=== PATIENT | male | born 1985 | race Caucasian/White ===

== ENCOUNTER 2021-05-30 19:14 | Inpatient (IN) ==
[2021-05-30 20:01] LABS: Basophils # (auto) 0.02 K/uL (0-0.2); Basophils % (auto) 0.2 %; Eosinophils # (auto) 0.09 K/uL (0-0.5); Eosinophils % (auto) 0.7 %; Hemoglobin 15.4 g/dL (14.0-18.0); Immature Granulocytes # (auto) 0.03 K/uL (0.00-0.02); Immature Granulocytes % (auto) 0.2 %; Lymphocytes # (auto) 3.03 K/uL (1.2-3.4); Lymphocytes % (auto) 24.7 %; Mean Corpuscular Hemoglobin 29.2 pg (25-34); Mean Corpuscular Hgb Conc 32.8 g/dL (32-36); Mean Corpuscular Volume 89.2 fL (80-100); Mean Platelet Volume 10.3 fL (7.4-10.4); Monocytes # (auto) 1.13 K/uL (0.11-0.59); Monocytes % (auto) 9.2 %; Neutrophils # (auto) 7.98 K/uL (1.4-6.5); Platelet Count 271 K/uL (130-400); RDW Coefficient of Variation 15.6 % (11.5-14.5); RDW Standard Deviation 49.6 fL (36.4-46.3); Red Blood Count 5.27 M/uL (4.7-6.1); White Blood Count 12.28 K/uL (4.8-10.8)
[2021-05-30 20:15] LABS: Alanine Aminotransferase 169 U/L (12-78); Albumin Level 3.2 gm/dl (3.4-5.0); Aspartate Aminotransferase 96 U/L (15-37); BUN Creatinine Ratio 25.9 (10-20); Blood Urea Nitrogen 27 mg/dl (7-18); Calcium 8.3 mg/dl (8.5-10.1); Carbon Dioxide 25 mmol/L (21-32); Chloride 109 mmol/L (98-107); Est GFR (African American) 106.6 ml/min; Est GFR (Non-African American) 91.9 ml/min; Glucose 116 mg/dl (70-99); Magnesium 2.3 mg/dl (1.8-2.4); Sodium 141 mmol/L (136-145)
[2021-05-30 20:17] LABS: INR 1.2 (0.9-1.1); Partial Thromboplastin Ratio 0.9; Partial Thromboplastin Time 23.4 Seconds (21.0-31.0); Prothrombin Time 11.6 Seconds (9.0-12.0)
[2021-05-30 20:25] LABS: Albumin Globulin Ratio 0.8 (0.9-2); Alkaline Phosphatase 93 U/L (45-117); Total Protein 7.2 gm/dl (6.4-8.2); Troponin I 0.068 ng/ml (0-0.045)
[2021-05-30] MEDS ORDERED: NITROGLYCERIN 2% OINTMENT 30GM TUBE EXT STA (20:35)
[2021-05-30] MEDS ORDERED: ASPIRIN CHEW 324 MG PO STA (20:35)
[2021-05-30] MEDS ORDERED: LABETALOL HCL IV 5 MG/ML 20ML IV STA ×2 (21:05→22:24)
--- NOTE | 2021-05-30 22:40 | History & Physical Report ---
Date of Service May 30, 2021 Assessment & Plan (1) Hypertensive emergency: Plan: Patient is a 35 year old male with no documented PMHx who presents with 1 month history of worsening SOB, GOETZ, orthopnea, in addition to 1 week history of acutely worsening cough that was treated with Azithromycin Z pack and Medrol dose sandhya taper, found to be in hypertensive emergency with BP 215/154 in addition to elevated troponin and AST/ALT. Hypertensive Emergency -With BP 215/154 (MAP 174) on arrival in ED -Through review of previous visit patient did have BP as high as 212/141 at last visit in January 2021 -With elevated AST 96 and ALT 169 -Liver US ordered though suspect elevations due to HTN vs fatty liver -Trop elevated 0.068 without EKG changes suggestive of STEMI - repeat trop ordered -BNP elevated at 1645, CXR with increase densities at the bases b/l, though patient has fairly large body habitus -Patient given Labetalol 10mg IV, ASA 324mg, and 0.5 inch nitro paste in ED with reduction of pressure to 171/132 -On reevaluation patient's BP returning to 192/138 when measured in room -Will give another Labetalol 10mg IV now in addition to 20mg IV lasix for diuresis -Goal MAP of 130 ~170/110 -Vital Signs q1h -Renal US ordered -Echocardiogram for AM ordered -Random cortisol and AM cortisol pending -ACTH ordered -TSH within normal limits -AM Lipid panel and HgbA1c -Start HCTZ PO 25mg QD in AM, will likely require a secondary and possible tertiary addition for his BP control regiment Dispo: PCU for close monitoring of hypertension FEN: Regular diet DVT: low risk Code: Full History of Present Illness Chief Complaint: SOB Primary Care Provider: NO PCP Patient is a 35 year old male with no documented PMHx who presents with 1 month history of worsening SOB, GOETZ, orthopnea, in addition to 1 week history of acutely worsening cough that was treated with Azithromycin Z pack and Medrol dose sandhya taper, found to be in hypertensive emergency with BP 215/154 in addition to elevated troponin and AST/ALT. Patient notes that for the past 1 month he has had worsening GOETZ to the point where even helping a client bring something outside would make him short of breath. He denies any chest pain, chest pressure, headache, or visual changes with this. HE also notes that during this time he has also been developing orthopnea, and that in the past 2-3 weeks he has had worsening LE swelling b/l and has been on occasion "waking up gasping." He notes that for the past 1 week as well he has developed a dry cough. He was seen at [facility] 1 week ago and prescribed a Z pack and Medrol Dose sandhya which he completed this morning. He feels his cough has improved, however, his SOB has not. He denies any fever, chills, chest pain, chest pressure, abdominal pain, nausea, vomiting, diarrhea, visual changes, headaches. Med Hx - denies history of medical issues Surg Hx - denies any surgeries Soc Hx - Smoked 1/2 PPD for 5-6 years, quit 1 year ago. Drinks 1-2 beers/month. Does not use illicit drugs Fam Hx - Notes significant history of hypertension in his younger brother, father, and paternal grandfather. Mother's family has diabetes in addition to thyroid cancer (mother) and breast cancer (2 maternal aunts). Allergies Allergy/AdvReac Type Severity Reaction Status Date / Time shellfish derived Allergy Severe Swelling Verified 05/30/21 21:38 of Lip/Tongue/Throat Home Medications Medication Instructions Recorded Confirmed Type No Known Home Medications 05/30/21 05/30/21 History Past Med/Surg History Social History Smoking Status: Former smoker Tobacco Type: Cigarettes Cigarettes Per Day: 10; Smoking End Date: September 2019; Hx Alcohol Use: Yes Alcohol type: beer Hx Substance Use: No Preferred Language: Hungarian Beliefs That Will Affect Care: None Current Living Situation: Alone Other Information That Helps Us Care for You: No Feels Safe at Home: Yes Safety Concerns: Feels Safe At This Time Assistive Devices: None Review of Systems Review of Systems: All systems reviewed & are unremarkable except as noted in Subjective Physical Exam Constitutional: well developed, well nourished, + morbidly obese and cooperative; no acute distress, not in distress, not diaphoretic and not lethargic Eyes: PERRL, conjunctivae normal, anicteric sclerae normal visual asher by confrontation and PERRL; no scleral abnormality, no corneal abnormality and no optic disc abnormality Did not appreciate any AV nicking or optic disc bulging on exam ENMT: external ear and nose normal, oropharynx normal Mallampati Class: II Throat: uvula midline Neck: trachea midline, no thyromegaly Respiratory: normal respiratory effort; no respiratory distress Auscultation: lungs clear to auscultation bilaterally and + rales (slight rales in the bases b/l ) Cardiovascular: Rate/Rhythm: regular rate and regular rhythm Heart Sounds: normal S1 and normal S2; no murmur Extremities: + edema (1+ edema to the knee ) Gastrointestinal (Abdomen): normal bowel sounds, soft, nontender, no hepatosplenomegaly Musculoskeletal: no cyanosis or clubbing, extremities motor strength 5/5 Skin: no rashes, warm and dry Neurologic: PERRL, EOMI, accommodation nl, no face palsy, no dysarthria moves all extremities and awake Psychiatric: A+Ox3, euthymic affect Results & Data Results & Data ([facility]) Vital Signs (Past 12 Hours) Vital Signs Temp Pulse Pulse Resp BP BP Pulse Ox 05/30/21 21:31 85 23 171/132 H 98 05/30/21 21:30 81 15 171/132 H 97 05/30/21 21:18 95 H 18 206/159 H 98 05/30/21 21:05 96 H 24 215/154 H 96 05/30/21 20:54 92 H 25 H 212/142 H 97 05/30/21 20:49 96 H 26 H 212/142 H 97 05/30/21 19:32 36.9 C 101 H 19 205/150 H 95 Supervising Physician Co-Signing Physician Notes Patient seen and examined, chart reviewed, case discussed with Dr. Mccord and I agree with his assessment and plan as documented above. In brief, patient is a 35yo male with no known past medical history presenting with hypertensive emergency, elevated troponin and BP >200. Reports GOETZ and orthopnea ongoing x 1 month On exam patient is resting comfortably, NAD Skin - intact HEENT - NC/AT, Neck supple, no JVD Heart - +S1/S2, regular, no m/r/g Lungs - diminished breath sounds in bases, mild crackles Heart - +S1/S2, regular Abd - +BS, soft, NT/ND Ext - trace edema Neuro - grossly without deficit labs and images reviewed Assessment/Plan - hypertensive emergency, BP 215/154, elevated troponin. IV Labetalol administered as well as nitro paste with improvement. Will aim to lower BP by 25% MAP over the first several hours then gradual lowering to normal. Check A1C to screen for DM as well as lipid panel Trend troponin Check Echo Renal US Will initiate HCTZ for first line - will await additional workup to add additional agents (?DM, ?WINIFRED will spinning frame changer) Remainder of plan as above Resident Activity Tracking Resident Involvement: Resident Care Provided Care Provided: Adult Hospital Medicine
[2021-05-30] MEDS ORDERED: FUROSEMIDE 40 MG/4 ML VIAL IV STA (23:09)
[2021-05-31] MEDS ORDERED: ACETAMINOPHEN 325 MG TAB PO PRN (03:47)
[2021-05-31] MEDS ORDERED: ONDANSETRON INJ 2 MG/ML 2 ML VIAL IV PRN (03:47)
[2021-05-31 04:13] LABS: Basophils # (auto) 0.02 K/uL (0-0.2); Basophils % (auto) 0.2 %; Eosinophils % (auto) 0.9 %; Hematocrit (blood only) 43.7 % (42-52); Hemoglobin 14.3 g/dL (14.0-18.0); Immature Granulocytes # (auto) 0.03 K/uL (0.00-0.02); Immature Granulocytes % (auto) 0.3 %; Lymphocytes # (auto) 2.47 K/uL (1.2-3.4); Lymphocytes % (auto) 22.2 %; Mean Corpuscular Hemoglobin 28.9 pg (25-34); Mean Corpuscular Hgb Conc 32.7 g/dL (32-36); Mean Corpuscular Volume 88.5 fL (80-100); Mean Platelet Volume 10.1 fL (7.4-10.4); Monocytes # (auto) 1.12 K/uL (0.11-0.59); Monocytes % (auto) 10.1 %; Neutrophils % (auto) 66.3 %; Platelet Count 249 K/uL (130-400); RDW Coefficient of Variation 15.8 % (11.5-14.5); RDW Standard Deviation 50.2 fL (36.4-46.3); Red Blood Count 4.94 M/uL (4.7-6.1); White Blood Count 11.14 K/uL (4.8-10.8)
[2021-05-31 04:30] LABS: Albumin Level 3.2 gm/dl (3.4-5.0); BUN Creatinine Ratio 21.7 (10-20); Calcium 7.9 mg/dl (8.5-10.1); Creatinine Clr Calc Pharmacy 163.9 ml/min; Est GFR (Non-African American) 88.8 ml/min
[2021-05-31 04:32] LABS: Albumin Globulin Ratio 0.9 (0.9-2); Bilirubin,Total 1.3 mg/dl (0.2-1); Globulin 3.6 gm/dl (2.5-4.0); Total Protein 6.8 gm/dl (6.4-8.2)
[2021-05-31 07:26] LABS: Estimated Average Glucose 166 mg/dl; Hemoglobin A1C 7.4 % (4.5-5.6)
--- NOTE | 2021-05-31 08:30 | Ultrasound Report ---
ULTRASOUND RIGHT UPPER QUADRANT ABDOMEN CLINICAL HISTORY: Elevated hepatic transaminases. COMPARISON STUDY: Abdominal CT dated 01/25/2020. TECHNIQUE: Real-time, grayscale, and color flow sonography of the right upper quadrant of the abdomen was performed. Images are reviewed in the transverse and longitudinal planes. FINDINGS: Liver: The liver is enlarged, measuring over 22 cm in length. Echotexture is heterogeneously increase d suggesting steatosis. This degrades acoustic penetration of the liver. There is nodularity of the h epatic surface contour. There is no intrahepatic biliary ductal dilatation. The main portal vein is p atent. Gallbladder: There is nonspecific gallbladder wall thickening, which measures up to 5 mm. No gallston es are identified. There is no pericholecystic fluid. A sonographic Trujillo's sign is reportedly absen t. The common bile duct measures up to 0.6 cm in diameter. Pancreas: Not visualized due to overlying bowel gas. Right kidney: Survey images of the right kidney demonstrate normal size and echotexture. There is no hydronephrosis. Ascites: None. IMPRESSION: 1. The liver is enlarged with evidence of steatosis. Nodularity of the surface contour suggests early morphological change of cirrhosis. 2. No shadowing gallstones are identified. 3. There is mild nonspecific gallbladder wall thickening, likely related to adjacent hepatocellular d isease. 4. Nonvisualization of the pancreas. ACT 112: Negative or not required by law. Electronically signed by: Percy Quintana M.D. 05/31/2021 8:29 AM
[2021-05-31] MEDS ORDERED: hydroCHLOROthiazide 25 MG TAB PO SCH (09:00)
[2021-05-31] MEDS ORDERED: amLODIPine BESYLATE 5 MG TAB PO SCH (09:00)
[2021-05-31] MEDS ORDERED: lisinopril 20 MG TAB PO SCH (09:00)
--- NOTE | 2021-05-31 09:23 | Ultrasound Report ---
US duplex renal artery CLINICAL HISTORY: hypertensive emergency COMPARISON STUDY: Abdomen and pelvis CT 01/25/2020. FINDINGS: The peak systolic velocity within the right renal artery is 89 cm/s and the peak systolic v elocity within the left renal artery is 86 cm/s. The proximal bilateral renal arteries were obscured by overlying bowel gas. The bilateral renal veins are patent. Normal resistive indices of the arcuate arteries. No hydronephrosis. IMPRESSION: No evidence for renal artery stenosis. ACT 112: Negative or not required by law. Electronically signed by: Quentin Liang M.D. 05/31/2021 9:22 AM
--- NOTE | 2021-05-31 09:28 | XRay Report ---
XR chest 1V portable HISTORY: Shortness of breath. COMPARISON: None. FINDINGS: No pneumothorax. No pleural effusions. The cardiac silhouette is mildly enlarged. There is mild central pulmonary basilar congestion without overt edema. No focal lung consolidations to sugges t pneumonia. IMPRESSION: Cardiomegaly with mild central pulmonary vascular congestion without overt edema. ACT 112: Negative or not required by law. Electronically signed by: Quentin Liang M.D. 05/31/2021 9:26 AM
--- NOTE | 2021-05-31 16:47 | Hospitalist Progress Note ---
Date of Service May 31, 2021 Assessment & Plan (1) Hypertensive emergency: Plan: Gradual improvement through the day today. Zestril-HCTZ 20-12.5 mg daily Amlodipine 2.5 mg daily Toprol-XL 25 mg daily (2) Diabetes: Plan: New diagnosis Start Metformin 1000 mg extended release q PM Will start 500 mg XL for first week, then increase to 1000 mg to avoid GI side effects Diabetes education A statin is indicated levels diabetes, and may be beneficial given his steatohepatitis, I will hold off on starting a statin at this time pending repeat LFTs as an outpatient. (3) Steatohepatitis: Plan: Risk factor modification including control of diabetes and hypertension We will discuss about toxic medications as well as alcohol abstinence (4) Shortness of breath: Plan: Suspect related to elevated blood pressures; also related to obesity and generalized deconditioning. Echocardiogram pending Admission and Anticipated Discharge Date Admission Date: May 31, 2021 Subjective 35-year-old male admitted to the emergency department earlier today with hypertension and progressive shortness of breath with dyspnea on exertion. He was seen at an urgent care clinic due to the shortness of breath and cough and was subsequently treated with a Z-Mehrdad as well as a Medrol Dosepak. Here in the emergency department he is found to be hypertensive with systolic readings greater than 200 mmHg. At present, he denies any chest pain or shortness of breath. Denies headache. No vision changes. In review of his chart, the patient was also noted to be quite hypertensive during an emergency department visit in Jan, 2021. At that time, he was in for a kidney stone and the elevated blood pressure was thought secondary to pain. He does note a family history of hypertension and multiple family members. Review of Systems Review of Systems: All systems reviewed & are unremarkable except as noted in Subjective Physical Exam Constitutional: well developed, well nourished, + morbidly obese and cooperative; no acute distress, not in distress, not diaphoretic and not lethargic Eyes: PERRL, conjunctivae normal, anicteric sclerae normal visual asher by confrontation and PERRL; no scleral abnormality, no corneal abnormality and no optic disc abnormality Did not appreciate any AV nicking or optic disc bulging on exam ENMT: external ear and nose normal, oropharynx normal Mallampati Class: II Throat: uvula midline Neck: trachea midline, no thyromegaly Respiratory: normal respiratory effort; no respiratory distress Auscultation: lungs clear to auscultation bilaterally and + rales (slight rales in the bases b/l ) Cardiovascular: Rate/Rhythm: regular rate and regular rhythm Heart Sounds: normal S1 and normal S2; no murmur Extremities: + edema (1+ edema to the knee ) Gastrointestinal (Abdomen): normal bowel sounds, soft, nontender, no hepatosplenomegaly Musculoskeletal: no cyanosis or clubbing, extremities motor strength 5/5 Skin: no rashes, warm and dry Neurologic: PERRL, EOMI, accommodation nl, no face palsy, no dysarthria moves all extremities and awake Psychiatric: A+Ox3, euthymic affect Results & Data Results & Data ([facility]) Vital Signs (Past 12 Hours) Vital Signs Temp Pulse Pulse Resp BP Pulse Ox 05/31/21 16:30 81 05/31/21 16:00 81 05/31/21 15:21 36.7 C 88 18 168/124 H 95 05/31/21 14:00 81 05/31/21 13:00 81 05/31/21 12:00 81 05/31/21 11:13 36.7 C 77 18 173/123 H 95 05/31/21 09:57 81 05/31/21 09:00 36.5 C 78 18 168/118 H 98 05/31/21 08:02 193/115 H 05/31/21 06:03 18 162/101 H 93 05/31/21 04:55 36.6 C 82 18 154/94 H 95 Laboratory Results White blood count 11.14, hemoglobin 14.3 BUN 23, creatinine 1.07 Hemoglobin A1c 7.4%. AST 74, ALT 152, alkaline phosphatase 86. Triglycerides 120, total cholesterol 137, LDL 79, HDL 34. Random a.m. cortisol is 18.56. ACTH is pending. COVID-19 screen is negative. Diagnostic Findings A renal artery duplex was negative for renal artery stenosis. 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 Chest x-ray demonstrated cardiomegaly with mild vascular congestion, though no overt edema.
--- NOTE | 2021-05-31 17:46 | Emergency Department Note ---
History of Present Illness General Chief complaint: Shortness of Breath/Dyspnea Stated complaint: SOB, POSSIBLE BLOOD CLOT IN LUNG Time Seen by Provider: 05/30/21 20:35 Source: patient and RN notes reviewed Mode of arrival: ambulatory Limitations: no limitations History of Present Illness Provider complaint: SOB This pt is a 35 yo male who presents to the ED with c/o SOB. Pt states he went to the urgent care last week and was placed on prednisone. Pt returned with continued SOB and was referred to ED for possible PE. Pt has h/o HTN but hasn't been on any medications. Since starting prednisone the patient states the cough has gotten better but the shortness of breath persists. He denies any fevers, chest pain, nausea. The patient denies seeing a primary care physician. Home Medications Medication Instructions Recorded Confirmed Type amlodipine 5 mg tablet (Norvasc) 2.5 mg PO QAM 30 Days #15 tab 06/01/21 Rx furosemide 20 mg tablet 20 mg PO QAM 30 Days #30 tab 06/01/21 Rx lisinopril 20 mg tablet 20 mg PO QAM 30 Days #30 tab 06/01/21 Rx metformin 1,000 mg tablet 1,000 mg PO DAILY 30 Days #30 tab 06/01/21 Rx metoprolol succinate 25 mg 25 mg PO QPM 30 Days #30 tab 06/01/21 Rx tablet,extended release 24 hr Allergies Allergy/AdvReac Type Severity Reaction Status Date / Time shellfish derived Allergy Severe Swelling Verified 05/30/21 21:38 of Lip/Tongue/Throat Past Med/Surg History Medical History (Updated 06/08/21 @ 09:29 by Tayla Crisostomo MD) Hypertension Social History Smoking Status: Former smoker Tobacco Type: Cigarettes Cigarettes Per Day: 10; Hx Alcohol Use: Yes Alcohol type: beer Hx Substance Use: No Preferred Language: Uzbek Beliefs That Will Affect Care: None Current Living Situation: Alone Feels Safe at Home: Yes Assistive Devices: None Review of Systems See HPI for pertinent positives & negatives. and A total of 10 systems reviewed and were otherwise negative Physical Exam Vital Signs Vital Signs - 24 hr 05/30/21 19:32 05/30/21 20:49 05/30/21 20:54 Temperature 36.9 C Temperature Source Temporal Artery Scan Pulse Rate 101 H 96 H Pulse Rate [Carotid] 92 H Pulse Rate from SpO2 Sensor 95 H Pulse Rhythm [Carotid] Regular Respiratory Rate 19 26 H 25 H Respiratory Effort / Characteristics Non-Labored Non-Labored Respiratory Depth Normal Normal Respiratory Pattern Regular Regular Blood Pressure 205/150 H 212/142 H Blood Pressure [Right Arm] 212/142 H Blood Pressure Mean 168 165 Blood Pressure Mean [Right Arm] 165 Blood Pressure Position [Right Arm] Lying Pulse Oximetry 95 97 97 Oxygen Delivery Method Room Air Room Air Sepsis Recent Fever Within 48 Hours No Sepsis New/Unexplained Change in Mental Status N/A Sepsis Action Taken by Nursing No Action Required 05/30/21 21:05 05/30/21 21:18 05/30/21 21:30 Temperature Temperature Source Pulse Rate 96 H 95 H 81 Pulse Rate [Carotid] Pulse Rate from SpO2 Sensor 96 H 94 H 86 Pulse Rhythm [Carotid] Respiratory Rate 24 18 15 Respiratory Effort / Characteristics Respiratory Depth Respiratory Pattern Blood Pressure 215/154 H 206/159 H 171/132 H Blood Pressure [Right Arm] Blood Pressure Mean 174 174 145 Blood Pressure Mean [Right Arm] Blood Pressure Position [Right Arm] Pulse Oximetry 96 98 97 Oxygen Delivery Method Sepsis Recent Fever Within 48 Hours Sepsis New/Unexplained Change in Mental Status Sepsis Action Taken by Nursing 05/30/21 21:31 05/30/21 22:00 05/30/21 22:30 Temperature Temperature Source Pulse Rate 87 80 Pulse Rate [Carotid] 85 Pulse Rate from SpO2 Sensor 86 80 Pulse Rhythm [Carotid] Regular Respiratory Rate 23 21 22 Respiratory Effort / Characteristics Respiratory Depth Normal Respiratory Pattern Blood Pressure 192/138 H 189/134 H Blood Pressure [Right Arm] 171/132 H Blood Pressure Mean 156 152 Blood Pressure Mean [Right Arm] 145 Blood Pressure Position [Right Arm] Pulse Oximetry 98 95 93 Oxygen Delivery Method Room Air Sepsis Recent Fever Within 48 Hours Sepsis New/Unexplained Change in Mental Status Sepsis Action Taken by Nursing 05/30/21 23:00 05/30/21 23:30 05/31/21 00:00 Temperature Temperature Source Pulse Rate 72 77 75 Pulse Rate [Carotid] Pulse Rate from SpO2 Sensor 72 77 76 Pulse Rhythm [Carotid] Respiratory Rate 16 14 10 L Respiratory Effort / Characteristics Respiratory Depth Respiratory Pattern Blood Pressure 179/124 H 149/95 H 179/127 H Blood Pressure [Right Arm] Blood Pressure Mean 142 113 144 Blood Pressure Mean [Right Arm] Blood Pressure Position [Right Arm] Pulse Oximetry 93 93 93 Oxygen Delivery Method Sepsis Recent Fever Within 48 Hours Sepsis New/Unexplained Change in Mental Status Sepsis Action Taken by Nursing Vital signs reviewed. Noted to be hypertensive. General: Obese but otherwise well appearing 35 yo male, in no distress HEENT: No scleral icterus, PERRLA, neck supple. Atraumatic. Cardiovascular: Regular rate and rhythm, no extra sounds. Pulmonary: Clear to auscultation bilaterally, normal work of breathing. Abdomen: Soft, nontender, nondistended, positive bowel sounds. Musculoskeletal: Atraumatic, moderate peripheral edema. Neurologic: Patient awake alert and oriented x 3 Skin: Warm, dry, no rash Course Administered Medications Discontinued Medications Amlodipine Besylate (Amlodipine Besylate 5 Mg Tab) 5 mg PO [facility] Stop: 06/30/21 08:59 Last Admin: 05/31/21 09:14 Dose: 5 mg Documented by: [id number] Amlodipine Besylate (Amlodipine Besylate 5 Mg Tab) 2.5 mg PO [facility] Stop: 07/01/21 08:59 Last Admin: 06/01/21 08:10 Dose: 2.5 mg Documented by: [id number] Aspirin (Aspirin Chew 324 Mg) 324 mg PO NOW STA Stop: 05/30/21 20:36 Last Admin: 05/30/21 20:51 Dose: 324 mg Documented by: [id number] Furosemide (Furosemide 40 Mg/4 Ml Vial) 20 mg IV NOW STA Stop: 05/30/21 23:10 Last Admin: 05/31/21 05:13 Dose: Not Given Documented by: [id number] Furosemide (Furosemide 20 Mg Tab) 20 mg PO [facility] Stop: 07/01/21 10:29 Last Admin: 06/01/21 12:13 Dose: 20 mg Documented by: [id number] Lisinopril/HCTZ (Lisinopril/Hctz 20/12.5mg 1 Tab Tab) 1 tab PO [facility] Stop: 07/01/21 08:59 Last Admin: 06/01/21 08:10 Dose: 1 tab Documented by: [id number] Hydrochlorothiazide (Hydrochlorothiazide 25 Mg Tab) 25 mg PO [facility] Stop: 06/30/21 08:59 Last Admin: 05/31/21 08:03 Dose: 25 mg Documented by: [id number] Labetalol HCl (Labetalol Hcl Iv 5 Mg/Ml 20ml) 10 mg IV NOW STA Stop: 05/30/21 21:06 Last Admin: 05/30/21 21:19 Dose: 10 mg Documented by: [id number] Cosigned by: [id number] Labetalol HCl (Labetalol Hcl Iv 5 Mg/Ml 20ml) 10 mg IV NOW STA Stop: 05/30/21 22:25 Last Admin: 05/30/21 23:02 Dose: 10 mg Documented by: [id number] Cosigned by: [id number] Labetalol HCl (Labetalol Hcl Iv 5 Mg/Ml 20ml) 10 mg IV NOW STA Stop: 06/01/21 06:40 Last Admin: 06/01/21 07:14 Dose: Not Given Documented by: [id number] Lisinopril (Lisinopril 20 Mg Tab) 20 mg PO QAM [facility] Stop: 06/30/21 08:59 Last Admin: 05/31/21 09:14 Dose: 20 mg Documented by: [id number] Metformin HCl (Metformin Hcl Er 500 Mg Tabcr) 500 mg PO PM [facility] Stop: 06/30/21 20:59 Last Admin: 05/31/21 20:17 Dose: 500 mg Documented by: [id number] Metoprolol Succinate (Metoprolol Succ 25mg Ext Rel Tab) 25 mg PO QPM [facility] Stop: 06/30/21 20:59 Last Admin: 05/31/21 20:17 Dose: 25 mg Documented by: [id number] Nitroglycerin (Nitroglycerin 2% Ointment 30gm Tube) 0.5 inch EXT NOW STA Stop: 05/30/21 20:36 Last Admin: 05/30/21 20:49 Dose: 0.5 inch Documented by: [id number] Potassium Chloride (Potassium Chloride Crtab 20 Meq Tabcr) 40 meq PO NOW STA Stop: 06/01/21 08:08 Last Admin: 06/01/21 08:21 Dose: 40 meq Documented by: [id number] Medical Decision Making Differential Diagnosis Reactive airway disease, pneumonia, pneumothorax, COPD, CHF, infections, cardiac ischemia, pulmonary embolism, musculoskeletal, gastrointestinal, as well as other pathologies. Medical Records Attestation: I reviewed the patient's medical records. Home Medications Current Medication List: was personally reviewed by me Laboratory Data Attestation: I reviewed the patient's lab results. Result diagrams: 06/01/21 05:52 06/01/21 05:52 Lab Results 05/30/21 05/30/21 05/30/21 Range/Units 19:39 19:39 19:39 WBC 12.28 H (4.8-10.8) K/uL RBC 5.27 (4.7-6.1) M/uL Hgb 15.4 (14.0-18.0) g/dL Hct 47.0 (42-52) % MCV 89.2 (80-100) fL MCH 29.2 (25-34) pg MCHC 32.8 (32-36) g/dL RDW Std Deviation 49.6 H (36.4-46.3) fL RDW Coeff of Mylene 15.6 H (11.5-14.5) % Plt Count 271 (130-400) K/uL MPV 10.3 (7.4-10.4) fL Immature Gran % (Auto) 0.2 % Neut % (Auto) 65.0 % Lymph % (Auto) 24.7 % [place] % (Auto) 9.2 % Eos % (Auto) 0.7 % Baso % (Auto) 0.2 % Neut # (Auto) 7.98 H (1.4-6.5) K/uL Lymph # (Auto) 3.03 (1.2-3.4) K/uL [place] # (Auto) 1.13 H (0.11-0.59) K/uL Eos # (Auto) 0.09 (0-0.5) K/uL Baso # (Auto) 0.02 (0-0.2) K/uL Immature Gran # (Auto) 0.03 H (0.00-0.02) K/uL PT 11.6 (9.0-12.0) Seconds INR 1.2 H (0.9-1.1) APTT 23.4 (21.0-31.0) Seconds PTT Ratio 0.9 Sodium 141 (136-145) mmol/L Potassium 4.0 (3.5-5.1) mmol/L Chloride 109 H (98-107) mmol/L Carbon Dioxide 25 (21-32) mmol/L Anion Gap 8.0 (3-11) BUN 27 H (7-18) mg/dl Creatinine 1.04 (0.6-1.4) mg/dl Est Cr Clr Drug Dosing Not Reportable Est GFR ( Amer) 106.6 ml/min Est GFR (Non-Af Amer) 91.9 ml/min BUN/Creatinine Ratio 25.9 H (10-20) Glucose 116 H (70-99) mg/dl Calcium 8.3 L (8.5-10.1) mg/dl Magnesium 2.3 (1.8-2.4) mg/dl Total Bilirubin 1.0 (0.2-1) mg/dl AST 96 H (15-37) U/L ALT 169 H (12-78) U/L Alkaline Phosphatase 93 (45-117) U/L Troponin I 0.068 H* (0-0.045) ng/ml NT-Pro-B Natriuret Pep (0-450) pg/ml Total Protein 7.2 (6.4-8.2) gm/dl Albumin 3.2 L (3.4-5.0) gm/dl Globulin 4.0 (2.5-4.0) gm/dl Albumin/Globulin Ratio 0.8 L (0.9-2) Lipase (73-393) U/L TSH (0.300-4.500) uIu/ml Random Cortisol mcg/dl COVID-19 Eval Order SARS-CoV-2 (PCR) (Negative) 05/30/21 05/30/21 05/30/21 Range/Units 19:39 19:39 21:25 WBC (4.8-10.8) K/uL RBC (4.7-6.1) M/uL Hgb (14.0-18.0) g/dL Hct (42-52) % MCV (80-100) fL MCH (25-34) pg MCHC (32-36) g/dL RDW Std Deviation (36.4-46.3) fL RDW Coeff of Mylene (11.5-14.5) % Plt Count (130-400) K/uL MPV (7.4-10.4) fL Immature Gran % (Auto) % Neut % (Auto) % Lymph % (Auto) % [place] % (Auto) % Eos % (Auto) % Baso % (Auto) % Neut # (Auto) (1.4-6.5) K/uL Lymph # (Auto) (1.2-3.4) K/uL [place] # (Auto) (0.11-0.59) K/uL Eos # (Auto) (0-0.5) K/uL Baso # (Auto) (0-0.2) K/uL Immature Gran # (Auto) (0.00-0.02) K/uL PT (9.0-12.0) Seconds INR (0.9-1.1) APTT (21.0-31.0) Seconds PTT Ratio Sodium (136-145) mmol/L Potassium (3.5-5.1) mmol/L Chloride (98-107) mmol/L Carbon Dioxide (21-32) mmol/L Anion Gap (3-11) BUN (7-18) mg/dl Creatinine (0.6-1.4) mg/dl Est Cr Clr Drug Dosing Est GFR ( Amer) ml/min Est GFR (Non-Af Amer) ml/min BUN/Creatinine Ratio (10-20) Glucose (70-99) mg/dl Calcium (8.5-10.1) mg/dl Magnesium (1.8-2.4) mg/dl Total Bilirubin (0.2-1) mg/dl AST (15-37) U/L ALT (12-78) U/L Alkaline Phosphatase (45-117) U/L Troponin I (0-0.045) ng/ml NT-Pro-B Natriuret Pep 1645 H (0-450) pg/ml Total Protein (6.4-8.2) gm/dl Albumin (3.4-5.0) gm/dl Globulin (2.5-4.0) gm/dl Albumin/Globulin Ratio (0.9-2) Lipase 186 (73-393) U/L TSH (0.300-4.500) uIu/ml Random Cortisol mcg/dl COVID-19 Eval Order Covid19 at [facility] SARS-CoV-2 (PCR) (Negative) 05/30/21 05/30/21 05/30/21 Range/Units 21:25 23:13 23:13 WBC (4.8-10.8) K/uL RBC (4.7-6.1) M/uL Hgb (14.0-18.0) g/dL Hct (42-52) % MCV (80-100) fL MCH (25-34) pg MCHC (32-36) g/dL RDW Std Deviation (36.4-46.3) fL RDW Coeff of Mylene (11.5-14.5) % Plt Count (130-400) K/uL MPV (7.4-10.4) fL Immature Gran % (Auto) % Neut % (Auto) % Lymph % (Auto) % [place] % (Auto) % Eos % (Auto) % Baso % (Auto) % Neut # (Auto) (1.4-6.5) K/uL Lymph # (Auto) (1.2-3.4) K/uL [place] # (Auto) (0.11-0.59) K/uL Eos # (Auto) (0-0.5) K/uL Baso # (Auto) (0-0.2) K/uL Immature Gran # (Auto) (0.00-0.02) K/uL PT (9.0-12.0) Seconds INR (0.9-1.1) APTT (21.0-31.0) Seconds PTT Ratio Sodium (136-145) mmol/L Potassium (3.5-5.1) mmol/L Chloride (98-107) mmol/L Carbon Dioxide (21-32) mmol/L Anion Gap (3-11) BUN (7-18) mg/dl Creatinine (0.6-1.4) mg/dl Est Cr Clr Drug Dosing Est GFR ( Amer) ml/min Est GFR (Non-Af Amer) ml/min BUN/Creatinine Ratio (10-20) Glucose (70-99) mg/dl Calcium (8.5-10.1) mg/dl Magnesium (1.8-2.4) mg/dl Total Bilirubin (0.2-1) mg/dl AST (15-37) U/L ALT (12-78) U/L Alkaline Phosphatase (45-117) U/L Troponin I (0-0.045) ng/ml NT-Pro-B Natriuret Pep (0-450) pg/ml Total Protein (6.4-8.2) gm/dl Albumin (3.4-5.0) gm/dl Globulin (2.5-4.0) gm/dl Albumin/Globulin Ratio (0.9-2) Lipase (73-393) U/L TSH 2.380 (0.300-4.500) uIu/ml Random Cortisol 8.04 mcg/dl COVID-19 Eval Order SARS-CoV-2 (PCR) NEGATIVE (Negative) Imaging Data Radiologist's Impression: Chest X-Ray 05/30/21 19:38 XR chest 1V portable HISTORY: Shortness of breath. COMPARISON: None. FINDINGS: No pneumothorax. No pleural effusions. The cardiac silhouette is mild ly enlarged. There is mild central pulmonary basilar congestion without overt edema. No focal lung consolidations to suggest pneumonia. IMPRESSION: Cardiomegaly with mild central pulmonary vascular congestion without overt edema. ACT 112: Negative or not required by law. Electronically signed by: Quentin Liang M.D. 05/31/2021 9:26 AM Liver Ultrasound 05/30/21 22:39 ULTRASOUND RIGHT UPPER QUADRANT ABDOMEN CLINICAL HISTORY: Elevated hepatic transaminases. COMPARISON STUDY: Abdominal CT dated 01/25/2020. TECHNIQUE: Real-time, grayscale, and color flow sonography of the right upper quadrant of the abdomen was performed. Images are reviewed in the transverse and longitudinal planes. FINDINGS: Liver: The liver is enlarged, measuring over 22 cm in length. Echotexture is heterogeneously increased suggesting steatosis. This degrades acoustic penetration of the liver. There is nodularity of the hepatic surface contour. There is no intrahepatic biliary ductal dilatation. The main portal vein is patent. Gallbladder: There is nonspecific gallbladder wall thickening, which measures up to 5 mm. No gallstones are identified. There is no pericholecystic fluid. A sonographic Trujillo's sign is reportedly absent. The common bile duct measures up to 0.6 cm in diameter. Pancreas: Not visualized due to overlying bowel gas. Right kidney: Survey images of the right kidney demonstrate normal size and echotexture. There is no hydronephrosis. Ascites: None. IMPRESSION: 1. The liver is enlarged with evidence of steatosis. Nodularity of the surface contour suggests early morphological change of cirrhosis. 2. No shadowing gallstones are identified. 3. There is mild nonspecific gallbladder wall thickening, likely related to adjacent hepatocellular disease. 4. Nonvisualization of the pancreas. ACT 112: Negative or not required by law. Electronically signed by: Percy Quintana M.D. 05/31/2021 8:29 AM Renal Artery Duplex 05/30/21 22:39 US duplex renal artery CLINICAL HISTORY: hypertensive emergency COMPARISON STUDY: Abdomen and pelvis CT 01/25/2020. FINDINGS: The peak systolic velocity within the right renal artery is 89 cm/s and the peak systolic velocity within the left renal artery is 86 cm/s. The proximal bilateral renal arteries were obscured by overlying bowel gas. The bilateral renal veins are patent. Normal resistive indices of the arcuate arteries. No hydronephrosis. IMPRESSION: No evidence for renal artery stenosis. ACT 112: Negative or not required by law. Electronically signed by: Quentin Liang M.D. 05/31/2021 9:22 AM ECG Data Attestation: I personally reviewed and interpreted this ECG as follows: Indication: + SOB/dyspnea Rate (beats per minute): 78 Rhythm: + sinus rhythm ECG Intervals/blocks: + First degree AV block ECG [place]: + Left axis deviation ECG ST segments: + Normal ST segments ECG Findings: + Poor R wave progression; no PACs or no PVCs Blood Pressure Blood Pressure Findings: Elevated blood pressure Blood Pressure Disposition: further management by hospitalist MDM Narrative This patient was evaluated and appeared to be in no significant distress. IV access was obtained and laboratory work was drawn. An order for cardiac monitoring was placed and the patient is noted to be in a sinus rhythm with a first-degree AV block at 81 bpm. Patient was given 3 and 24 mg of aspirin to chew and nitroglycerin paste was applied. He was also given 10 mg of IV labetalol for the marked hypertension. Chest x-ray was performed and reveals cardiomegaly with pulmonary vascular congestion. Laboratory work reveals a mildly elevated troponin. EKG reveals no evidence of acute ST elevation. Patient's case was referred to the hospitalist service for further management. Patient was aware of the plan and agreed. Impression & Plan Hypertensive emergency, Elevated troponin Discharge Plan Visit Data Chief Complaint: Shortness of Breath/Dyspnea Stated Complaint: SOB, POSSIBLE BLOOD CLOT IN LUNG ED Provider: Tayla Crisostomo Discharge Problem: Hypertensive emergency, Elevated troponin Patient Disposition: Admitted As Inpatient Condition: Fair Discharge Instructions Interventions: ED Discharge Assessment Last Done: 05/31/21 04:04
--- NOTE | 2021-05-31 17:59 | XCELERA ---
[id number]
--- NOTE | 2021-05-31 18:53 | Electrocardiogram Report ---
Test Reason : Blood Pressure : / mmHG Vent. Rate : 099 BPM Atrial Rate : 099 BPM P-R Int : 194 ms QRS Dur : 098 ms QT Int : 374 ms P-R-T Axes : 055 -42 077 degrees QTc Int : 479 ms Poor data quality, interpretation may be adversely affected Normal sinus rhythm Possible Left atrial enlargement Poor R wave progression, consider anterior [place] vs. lead placement vs. LVH Left axis deviation Abnormal ECG No previous ECGs available Confirmed by You Rea ([id number]) on 05/31/2021 6:53:13 PM Referred By: REFERRED SELF Confirmed By:Ole Rea
[2021-05-31] MEDS ORDERED: METOPROLOL SUCC 25MG EXT REL TAB PO SCH (21:00)
[2021-05-31] MEDS ORDERED: metFORMIN HCL ER 500 MG TABCR PO SCH (21:00)
--- NOTE | 2021-06-01 00:06 | Billing Data ---
Date of Service May 31, 2021 Coding Level of Care Code 64162 Initial Inpt Care Lvl 2
[2021-06-01 06:32] LABS: Basophils # (auto) 0.01 K/uL (0-0.2); Basophils % (auto) 0.1 %; Eosinophils # (auto) 0.17 K/uL (0-0.5); Eosinophils % (auto) 2.1 %; Hematocrit (blood only) 42.5 % (42-52); Hemoglobin 14.3 g/dL (14.0-18.0); Immature Granulocytes # (auto) 0.01 K/uL (0.00-0.02); Immature Granulocytes % (auto) 0.1 %; Lymphocytes # (auto) 1.72 K/uL (1.2-3.4); Mean Corpuscular Hgb Conc 33.6 g/dL (32-36); Mean Corpuscular Volume 89.1 fL (80-100); Mean Platelet Volume 10.4 fL (7.4-10.4); Neutrophils # (auto) 5.37 K/uL (1.4-6.5); Neutrophils % (auto) 65.7 %; Platelet Count 230 K/uL (130-400); RDW Coefficient of Variation 15.5 % (11.5-14.5); RDW Standard Deviation 49.7 fL (36.4-46.3); Red Blood Count 4.77 M/uL (4.7-6.1); White Blood Count 8.18 K/uL (4.8-10.8)
[2021-06-01] MEDS ORDERED: LABETALOL HCL IV 5 MG/ML 20ML IV STA (06:39)
[2021-06-01 07:03] LABS: Albumin Level 3.1 gm/dl (3.4-5.0); BUN Creatinine Ratio 17.7 (10-20); Calcium 8.1 mg/dl (8.5-10.1); Creatinine Clr Calc Pharmacy 199.2 ml/min; Est GFR (African American) 128.1 ml/min; Est GFR (Non-African American) 110.5 ml/min; Magnesium 2.3 mg/dl (1.8-2.4); Potassium 3.8 mmol/L (3.5-5.1)
[2021-06-01 07:08] LABS: Albumin Globulin Ratio 0.9 (0.9-2); Bilirubin,Total 1.5 mg/dl (0.2-1); Globulin 3.6 gm/dl (2.5-4.0); Total Protein 6.7 gm/dl (6.4-8.2); Troponin I 0.025 ng/ml (0-0.045)
[2021-06-01] MEDS ORDERED: POTASSIUM CHLORIDE CRTAB 20 MEQ TABCR PO STA (08:07)
[2021-06-01] MEDS ORDERED: LISINOPRIL/HCTZ 20/12.5MG 1 TAB TAB PO SCH (09:00)
[2021-06-01] MEDS ORDERED: amLODIPine BESYLATE 5 MG TAB PO SCH (09:00)
--- NOTE | 2021-06-01 09:21 | Hospitalist Progress Note ---
Date of Service June 01, 2021 Assessment & Plan (1) Hypertensive emergency: Plan: Patient is a 35 year old male with no documented PMHx who presents with 1 month history of worsening SOB, GOETZ, orthopnea, in addition to 1 week history of acutely worsening cough that was treated with Azithromycin Z pack and Medrol dose sandhya taper, found to be in hypertensive emergency with BP 215/154 in addition to elevated troponin and AST/ALT. Hypertensive Emergency -Patient found to have BP 215/154 (MAP 174) on arrival in ED; noted to have around the same in January 2021 -Work-up as follows: - AM cortisol: 18.56 / ACTH (-) - TSH WNL - Renal US without evidence of WINIFRED - BMI 53.4 - Nocturnal oximetry ordered given risk factors for QUINN - Echo as below -Treatment as follows: - Lisinopril 20mg / day (d/c HCTZ) - Amlodipine 2.5mg / day - Lasix 20mg / day - Metoprolol succinate 25mg / day -Echo results as below -Increase Lisinopril to 40mg / day -Goal MAP of 130 ~170/110 Acute HFrEF -- LVEF 35-40%, in setting of hypertensive emergency -Echo 05/31 demonstrating: moderate-severely reduced LV function with severe hypokinesis and moderate dilation and severe LA dilation, mild cLVH, elevated RVSP (40-50) with moderate dilation of the IVC -Suspect in-part due to ongoing hypertensive emergency and high afterload burden, however suspect possibly due to a viral myocarditis in setting of recent illness -TG 120 / TC 137 / LDL 79 / VLDL 24 / HDL 34 -Continue ACEI, BB as above -- d/c HCTZ -Add Lasix 20mg PO qAM -K > 4, Phos > 3, Mg > 2 -- replete p.r.n. -Strict I&Os, daily weights -Appreciate cardiology insight Shortness of Breath -Presented to ED with 1 month of worsening SOB, GOETZ, and cough x 1 week -Work-up as above -- low suspicion for infectious etiology right now, however possibly before had a component of viral infection -Suspect secondary to acute HFrEF in setting of hypertensive emergency -Also contributory from obesity and deconditioning -Noctural oximetry, as above -- contribution from QUINN also likely Transient Wide-Complex Tachycardia -- resolved -One-minute run of WCT (AT > vs. VT) in the early AM of 06/01 while sleeping, spontaneously converted thereafter and has since remained in NSR -In setting of resolving hypertensive emergency and acute HFrEF -No ECG available at the time this occurred -Troponin rechecked, negative -Continue beta-blockade as above -Cardiology consult placed by night team, appreciate insight and recommendations T2DM -- A1c 7.4% -Start metformin -- 500mg x 1 week, thereafter increase to 1000mg -Diabetes education -Hold on adding statin until normalization of LFTs Transaminitis -- in setting of radiologic evidence of NAFLD -Suspect secondary to hypertensive emergency, steatohepatitis, possible viral infection -Improving on day-to-day labs (AST 69 / ALT 130 today) -Trend CMP Dispo: PCU for close monitoring of hypertension FEN: Regular diet DVT: low risk Code: Full Admission and Anticipated Discharge Date Admission Date: May 31, 2021 Supervising Physician Co-Signing Physician Notes I also saw the patient with the resident physician and confirmed watkins portions of the history and physical examination. I also discussed the case with the [employer] consultant. He is feeling better today. Less short of breath. He denies any chest pain; he does not describe any chest pain prior to arrival or since hospitalization. Surprisingly, his echocardiogram completed late yesterday shows marked reduced left ventricular function. It is unclear to me if this is secondary to prolonged hypertension or secondary to his recent viral illness. Coronary artery disease could account, but seems less likely given the global hypokinesis and his lack of cardiac symptoms prior to his most recent illness. Exam 153/120, 83, 18, 36.5, 93% on room air Pleasant alert. Heart regular rate and rhythm Lungs essentially clear Extremities obese with trace edema bilaterally at the ankles. This looks a little improved compared to previous Data Hemoglobin 14.3, platelet count 230 BUN 15, creatinine 0.88 Total bilirubin 1.5, AST 69, ALT 130. Plasma free metanephrines are pending. Assessment and Plan I agree with the impression and plan in the resident documentation as summarized below as well. Hypertension, improved Left ventricular dysfunction, etiology uncertain Blood pressures are improved and probably acceptable for discharge. Further titration can be done as an outpatient. Repeat limited echocardiogram to assess left ventricular function as an outpatient Obesity Suspect obstructive sleep apnea He will need a sleep study as an outpatient Transaminitis Uncertain if this is due to hepatic vascular congestion versus secondary to his viral illness Should check a hepatitis screen as an outpatient Will need to follow to determine his baseline; adding a statin due to his diabetes once we find his baseline LFTs Lkg-tcuulpl-rcfszyrpl diabetes, new diagnosis Metformin 500 mg extended release every afternoon, increasing to 1000 mg extended release upon discharge Diabetes education Subjective Overnight, patient did have an approximately 1 minute run of wide-complex tachycardia associated with shortness of breath around 0230. Converted spontaneously. Around 01 20, had a 10-second run of the same. At the bedside this morning, patient reports feeling okay overall. No headache, vision changes. Denies any chest pain or shortness of breath. No cough. Appetite okay, however he notes "I guess I will know from hungry once food gets here." No nausea or vomiting. Review of Systems Review of Systems: As per HPI Physical Exam Physical Exam: General: Overall, well-appearing 35-year-old gentleman who is lying back in his hospital bed upon my arrival. He converses freely and is without any acute distress. HEENT: NCAT. Eyes - Sclera are white, anicteric, and without injection. PERRL. EOMs display full ROM bilaterally. Mouth - MMM with no tonsillar edema or exudates. Cardiac: Normal rate and regular rhythm; S1 and S2 present with no murmurs, rubs, or gallops. Pulmonary: Good respiratory effort with symmetric expansion of the chest. No use of accessory muscles. Lungs were clear to auscultation bilaterally with no crackles or wheezes. Abdominal: Normoactive bowel sounds. Abdomen was soft, nondistended, and non- tender to palpation. Extremities: Upper and lower extremities are warm and well perfused. There is 1+ pitting edema in the lower extremities bilaterally. Psych: Well-developed, well-nourished, appropriately dressed for occasion. Behavior is cooperative and appropriate. Affect is WNL. Insight is appropriate. Results & Data Results & Data ([facility]) Vital Signs (Past 12 Hours) Vital Signs Temp Pulse Pulse Resp BP BP Pulse Ox 06/01/21 07:05 36.4 C L 73 20 168/120 H 91 06/01/21 06:39 20 L 86 166/120 H 06/01/21 04:31 66 24 170/134 H 93 06/01/21 04:00 36.6 C 76 16 173/137 H 94 09/08/21 23:14 36.4 C L 87 16 164/126 H 97 Resident Activity Tracking Resident Involvement: Resident Care Provided Care Provided: Adult Hospital Medicine
[2021-06-01] MEDS ORDERED: FUROSEMIDE 20 MG TAB PO SCH (10:30)
--- NOTE | 2021-06-01 16:01 | Discharge Summary ---
Date of Service June 01, 2021 Admission HPI Per Admitting Provider Patient is a 35 year old male with no documented PMHx who presents with 1 month history of worsening SOB, GOETZ, orthopnea, in addition to 1 week history of acutely worsening cough that was treated with Azithromycin Z pack and Medrol dose sandhya taper, found to be in hypertensive emergency with BP 215/154 in addition to elevated troponin and AST/ALT. Patient notes that for the past 1 month he has had worsening GOETZ to the point where even helping a client bring something outside would make him short of breath. He denies any chest pain, chest pressure, headache, or visual changes with this. HE also notes that during this time he has also been developing orthopnea, and that in the past 2-3 weeks he has had worsening LE swelling b/l and has been on occasion "waking up gasping." He notes that for the past 1 week as well he has developed a dry cough. He was seen at [facility] 1 week ago and prescribed a Z pack and Medrol Dose sandhya which he completed this morning. He feels his cough has improved, however, his SOB has not. He denies any fever, chills, chest pain, chest pressure, abdominal pain, nausea, vomiting, diarrhea, visual changes, headaches. Med Hx - denies history of medical issues Surg Hx - denies any surgeries Soc Hx - Smoked 1/2 PPD for 5-6 years, quit 1 year ago. Drinks 1-2 beers/month. Does not use illicit drugs Fam Hx - Notes significant history of hypertension in his younger brother, michael dougherty, and paternal grandfather. Mother's family has diabetes in addition to thyroid cancer (mother) and breast cancer (2 maternal aunts). Admission Exam Per Admitting Provider Constitutional: well developed, well nourished, + morbidly obese and cooperative; no acute distress, not in distress, not diaphoretic and not letharg ic Eyes: PERRL, conjunctivae normal, anicteric sclerae normal visual asher by confrontation and PERRL; no scleral abnormality, no corneal abnormality and no optic disc abnormality Did not appreciate any AV nicking or optic disc bulging on exam ENMT: external ear and nose normal, oropharynx normal Mallampati Class: II Throat: uvula midline Neck: trachea midline, no thyromegaly Respiratory: normal respiratory effort; no respiratory distress Auscultation: lungs clear to auscultation bilaterally and + rales (slight rales in the bases b/l ) Cardiovascular: Rate/Rhythm: regular rate and regular rhythm Heart Sounds: normal S1 and normal S2; no murmur Extremities: + edema (1+ edema to the knee ) Gastrointestinal (Abdomen): normal bowel sounds, soft, nontender, no hepatosplenomegaly Musculoskeletal: no cyanosis or clubbing, extremities motor strength 5/5 Skin: no rashes, warm and dry Neurologic: PERRL, EOMI, accommodation nl, no face palsy, no dysarthria moves all extremities and awake Psychiatric: A+Ox3, euthymic affect Principal Diagnosis hypertensive emergency cardiomyopathy Discharge Exam General: Overall, well-appearing 35-year-old gentleman who is lying back in his hospital bed upon my arrival. He converses freely and is without any acute distress. HEENT: NCAT. Eyes - Sclera are white, anicteric, and without injection. PERRL. EOMs display full ROM bilaterally. Mouth - MMM with no tonsillar edema or exudates. Cardiac: Normal rate and regular rhythm; S1 and S2 present with no murmurs, rubs, or gallops. Pulmonary: Good respiratory effort with symmetric expansion of the chest. No use of accessory muscles. Lungs were clear to auscultation bilaterally with no crackles or wheezes. Abdominal: Normoactive bowel sounds. Abdomen was soft, nondistended, and non- tender to palpation. Extremities: Upper and lower extremities are warm and well perfused. There is 1+ pitting edema in the lower extremities bilaterally. Psych: Well-developed, well-nourished, appropriately dressed for occasion. Behavior is cooperative and appropriate. Affect is WNL. Insight is appropriate. Discharge Data Allergies Allergy/AdvReac Type Severity Reaction Status Date / Time shellfish derived Allergy Severe Swelling Verified 05/30/21 21:38 of Lip/Tongue/Throat Consultations 05/30/21 21:24 ED Decision to Admit Stat 06/01/21 05:31 Consult Cardiology Routine Ordered Studies US duplex renal artery (06/01) CLINICAL HISTORY: hypertensive emergency COMPARISON STUDY: Abdomen and pelvis CT 01/25/2020. FINDINGS: The peak systolic velocity within the right renal artery is 89 cm/s and the peak systolic velocity within the left renal artery is 86 cm/s. The prox imal bilateral renal arteries were obscured by overlying bowel gas. The bilateral renal veins are patent. Normal resistive indices of the arcuate arteries. No hydronephrosis. IMPRESSION: No evidence for renal artery stenosis. ---- ULTRASOUND RIGHT UPPER QUADRANT ABDOMEN (05/30) CLINICAL HISTORY: Elevated hepatic transaminases. COMPARISON STUDY: Abdominal CT dated 01/25/2020. TECHNIQUE: Real-time, grayscale, and color flow sonography of the right upper quadrant of the abdomen was performed. Images are reviewed in the transverse and longitudinal planes. FINDINGS: Liver: The liver is enlarged, measuring over 22 cm in length. Echotexture is heterogeneously increased suggesting steatosis. This degrades acoustic penetration of the liver. There is nodularity of the hepatic surface contour. There is no intrahepatic biliary ductal dilatation. The main portal vein is patent. Gallbladder: There is nonspecific gallbladder wall thickening, which measures up to 5 mm. No gallstones are identified. There is no pericholecystic fluid. A sonographic Trujillo's sign is reportedly absent. The common bile duct measures up to 0.6 cm in diameter. Pancreas: Not visualized due to overlying bowel gas. Right kidney: Survey images of the right kidney demonstrate normal size and echotexture. There is no hydronephrosis. Ascites: None. IMPRESSION: 1. The liver is enlarged with evidence of steatosis. Nodularity of the surface contour suggests early morphological change of cirrhosis. 2. No shadowing gallstones are identified. 3. There is mild nonspecific gallbladder wall thickening, likely related to adjacent hepatocellular disease. 4. Nonvisualization of the pancreas. ---- XR chest 1V portable (05/31) HISTORY: Shortness of breath. COMPARISON: None. FINDINGS: No pneumothorax. No pleural effusions. The cardiac silhouette is mildly enlarged. There is mild central pulmonary basilar congestion without overt edema. No focal lung consolidations to suggest pneumonia. IMPRESSION: Cardiomegaly with mild central pulmonary vascular congestion without overt edema. Diabetes Follow up Diabetes Follow-up Needed for Newly Diagnosed Diabetes Hospital Course (1) Hypertensive emergency: Patient is a 35 year old male with no documented PMHx who presents with 1 month history of worsening SOB, GOETZ, orthopnea, in addition to 1 week history of acutely worsening cough that was treated with Azithromycin Z pack and Medrol dose sandhya taper, found to be in hypertensive emergency with BP 215/154 in addition to elevated troponin and AST/ALT. Hypertensive Emergency -Patient found to have BP 215/154 (MAP 174) on arrival in ED; noted to have around the same in January 2021 -Work-up as follows: - AM cortisol: 18.56 / ACTH (-) - TSH WNL - Renal US without evidence of WINIFRED - BMI 53.4 - Nocturnal oximetry ordered given risk factors for QUINN - Echo as below -Treatment as follows: - Lisinopril 20mg / day - Amlodipine 2.5mg / day - Lasix 20mg / day - Metoprolol succinate 25mg / day -Echo results as below -Goal MAP of 130 ~170/110 Acute HFrEF -- LVEF 35-40%, in setting of hypertensive emergency -Echo 05/31 demonstrating: moderate-severely reduced LV function with severe hypokinesis and moderate dilation and severe LA dilation, mild cLVH, elevated RVSP (40-50) with moderate dilation of the IVC -Suspect in-part due to ongoing hypertensive emergency and high afterload burden, however suspect possibly due to a viral myocarditis in setting of recent illness -Lower suspicion this is secondary to early coronary disease, but certainly can consider catheterization as outpatient via cardiology -TG 120 / TC 137 / LDL 79 / VLDL 24 / HDL 34 / A1c 7.4% -Continue ACEI, BB, Lasix -- as above -Consider addition of spironolactone in future -Highly recommend sleep study as an outpatient -Recommend f/u CMP (for lytes and Cr) in 7-10 days upon d/c Shortness of Breath -Presented to ED with 1 month of worsening SOB, GOETZ, and cough x 1 week -Work-up as above -- low suspicion for infectious etiology right now, however possibly before had a component of viral infection -Suspect secondary to acute HFrEF in setting of hypertensive emergency -Also contributory from obesity and deconditioning -Noctural oximetry, as above -- contribution from QUINN also likely Transient Wide-Complex Tachycardia -- resolved -One-minute run of WCT (AT > vs. VT) in the early AM of 06/01 while sleeping, spontaneously converted thereafter and has since remained in NSR -In setting of resolving hypertensive emergency and acute HFrEF -No ECG available at the time this occurred -Troponin rechecked, negative -Continue beta-blockade as above -Continue following with cardiology as outpatient T2DM -- A1c 7.4% -Start metformin -- 500mg x 1 week, thereafter increase to 1000mg -Diabetes education -Recommend considering statin therapy upon resolution of transaminitis Transaminitis -- in setting of radiologic evidence of NAFLD -Suspect secondary to hypertensive emergency, steatohepatitis, possible viral infection -Improving on day-to-day labs (at d/c: AST 69 / ALT 130 today) -Recommend f/u CMP (for lytes and Cr) in 7-10 days upon d/c Code: Full Total Time Total Time Spent Total Time Spent (In Minutes): 30 Discharge Plan Discharge Items Patient Disposition: Home - Self-Care Reason For Visit: HYPERTENSIVE EMERGENCY Discharge Diagnosis: hypertensive emergency cardiomyopathy Condition on Discharge: Fair Activity: Per Instructions section Non-emergency contact: Primary Care Provider and Ultrasound Specialist Call non-emergency contact if: you have any medication questions, your pain is unusual for you and your temperature is above 101 Follow-up/Referrals: PCP,NO [Primary Care Provider] - Diet: Carb Consistent or DM2 Addtl Attending Provider Instructions: You were seen in [facility] for evaluation of shortness of breath. Upon arrival, you were also found to have very high blood pressures. During your stay, you underwent test to determine the cause of both of these issues. With regards to your shortness of breath, your chest scan did demo nstrate evidence of fluid in the lungs. As such, you underwent an ultrasound of the heart -- this did show evidence of decreased function. The exact cause of this is not clear at this time; while it certainly could be due to high blood pressures, it is also possible that underlying sleep apnea may be contributing, viral illness, or less likely, heart disease. The decreased heart function likely played a part in your shortness of breath, as did the blood pressure. At this time, your work-up for the cause of the blood pressure -such as hormone related issues, as well as kidney issuesreturned negative. We strongly suspect that a portion of your blood pressure issues are due to possible sleep apnea and weight. Another issue you were followed for while here was elevated liver enzymes. This is sometimes seen in individuals that come in with severe range blood pressures. It is also possible that, if a viral illness was present within the last several weeks, this contributed as well. Imaging of the liver did show fatty/inflammatory changes, too. While your numbers decreased during her hospitalization anterior liver function was normal, it is going to be important to follow-up with a primary care doctor to have these numbers rechecked within the next 1 to 2 weeks. Similarly, your laboratories also demonstrate changes consistent with newly discovered diabetes. Upon discharge, you are going to start several medications to help control your blood pressure, manage your heart function, and treat diabetes. These include: Amlodipine 2.5 mg daily Furosemide (Lasix) 20 mg daily Lisinopril 20 mg daily Metoprolol succinate 25 mg daily Metformin 500 mg daily x 5 day, then 1000 mg a day thereafter Upon discharge, we highly recommend that you establish with a primary care doctor to help manage these issues. During your stay here, you were cared for by Dr. Maverick Orellana and Dr. Catalino Hutchins. Their office can be contacted at to set up an appointment. We recommend that you follow-up with him 1 to 2 weeks to review this visit, your medications, and to set up a sleep study to evaluate for obstructive sleep apnea. As discussed with Dr. Rea, the lay out inspector who saw you here, we also highly recommend that you follow-up with [facility], for continued evaluation of your heart health. In the interim, if you experience worsening shortness of breath, chest pain, palpitations, lightheadedness, dizziness, fever, nausea, vomiting, or other worrisome symptoms, please seek medical attention; if your symptoms are severe, please report to the emergency room for immediate evaluation. It was a pleasure for caring for you while you are here, and we wish you all the best in your recovery. Maverick Orellana MD Resident Physician [facility] [address], [address] [place], [place] PHONE: ----- Call 911 and go to the Emergency Room if: * You have tightness or pain in your chest that does not go away with rest or Nitroglycerin * You are very short of breath even with rest Call your doctor if any of the following symptoms or problems start or get worse: * Shortness of breath or difficulty breathing * Wake up at night short of breath * Chest pain * Cough * Swelling of your hands, fee, or legs * More fatigued or tired with your normal activity * Palpitations - sudden fast heart beats WEIGHT * Weigh yourself every morning after using the bathroom. * Use the same scale. * Wear the same amount of clothing. * Write your weight down on your chart. * Call your doctor if you gain more than 2-3 pounds in 1-2 days. MEDICATIONS * Use this discharge instruction sheet for instructions. * Take your medications at the time your doctor ordered. * Do not skip a dose of your medicines. * If you miss a dose of medicine, take as soon as possible, but DO NOT DOUBLE A DOSE. * Read your medicine information when you get home. * Know all of the side effects of your medicine. * Call your doctor's office if you have any side effects. * Be sure all of your doctors know what medicine and herbs you take (including cold, flu, and herbal medicine). * Pain Medicine: If you do not get relief from your pain, please call your doctor for help. Take the following with you to your follow-up doctor appointments: * Weight Chart * Medication List * List of questions Do not drink excessive alcohol, beer or wine. Pending Studies at Discharge: No Stand-Alone Forms: [facility], Smoking Cessation Medications and DC Order Prescriptions: New lisinopril 20 mg Tablet 20 mg PO QAM 30 Days Qty: 30 RF: 1 amlodipine [Norvasc] 5 mg Tablet 2.5 mg PO QAM 30 Days Qty: 15 RF: 1 furosemide 20 mg Tablet 20 mg PO QAM 30 Days Qty: 30 RF: 1 metoprolol succinate 25 mg Tablet Extended Release 24 Hr 25 mg PO QPM 30 Days Qty: 30 RF: 1 metformin 500 mg Tablet Extended Release 24 Hr 500 mg PO PM 5 Days Qty: 5 RF: 0 metformin 1,000 mg tablet 1,000 mg PO DAILY 30 Days Qty: 30 RF: 1 Discharge Orders: Discharge Order (Routine); Ordered 06/01/21 Ordered By: Maverick Bright/Other Patient Handouts: Taking AMBER Inhibitors, Taking a Diuretic, Taking a Beta-Betsy, Taking Amlodipine, ED Hypertension, New (Begin Treatment), Diabetes and High Blood Pressure Admission Data Admit Date/Time: 05/31/21 00:09 Attending Provider: Deonte Hutchins Admit Provider: Hari Mccord Primary Care Provider: PCP,NO Other Providers: Milly Alvarez ; Jerson Guzmán Resident Activity Tracking Resident Involvement: Resident Care Provided Care Provided: Adult [facility] Medicine
--- NOTE | 2021-06-01 17:36 | Cardiology Consultation ---
Date of Consultation June 01, 2021 Assessment & Plan (1) Hypertension: (2) Cardiomyopathy: 1. Cardiomyopathy: Unclear etiology or chronicity. He certainly he develops symptoms recently which would be consistent with pulmonary vascular congestion due to systolic heart failure. He seems to have improved with diuresis. Did not report symptoms consistent with ischemic heart disease. He seems to have an element of biventricular dilation which would be more common with a nonischemic etiology. Think the most likely reason for his heart failure is a combination of hypertension and sleep apnea. He will be screened for additional, left common etiology such as hemochromatosis, sarcoidosis or infiltrative process. At this point I do not think he requires any immediate evaluation for ischemia. Will continue to monitor him for symptoms and consider right and left heart catheterization if he does not demonstrate improvement in his LV function or develops additional symptoms. He has been started on standard medical therapy which includes beta blockade with metoprolol succinate and lisinopril. He he was started on daily diuretic as well. The outpatient setting we can entertain a switch to Entresto and or the addition of spironolactone 2. Hypertension: Renal artery scan was normal. Likely essential hypertension. Likely poorly controlled over an extended period of time. He has been started on medical therapy. He has demonstrated some improvement in his blood pressure. History of Present Illness Reason for Consultation: wide complex tachycardia, cardiomyopathy Requesting Physician: Cuong Attending Physician: Deonte Hutchins, DO History of Present Illness the patient is a 35-year-old gentleman without a known history of cardiac disease who presented to the hospital with symptoms of mild dyspnea and cough. The symptoms have been progressive over the course of 1 month. There was some associated lower extremity edema. Patient had been treated on outpatient basis with the steroids and antibiotics. This seemed to resolve his coffee continued have elements of dyspnea. He did not report orthopnea. He did not report symptoms of chest discomfort. No sense of palpitation. He denies symptoms of dizziness or lightheadedness. At time presentation was noted to be markedly hypertensive. He has also felt that of element of pulmonary vascular congestion and underwent diuresis with good result and resolution of his symptoms. Patient states that he is an active individual. He does not exercise regularly but there are times at work where he needs to perform strenuous activity such as lifting heavy objects. He states that more recently this caused worsening dyspnea. He has not report chest pain associated with activity of any kind. Has not measured his blood pressure over time. He has never been on medical therapy for high blood pressure. He denies significant alcohol intake. Allergies Allergy/AdvReac Type Severity Reaction Status Date / Time shellfish derived Allergy Severe Swelling Verified 05/30/21 21:38 of Lip/Tongue/Throat Home Medications Medication Instructions Recorded Confirmed Type amlodipine 5 mg tablet (Norvasc) 2.5 mg PO QAM 30 Days #15 tab 06/01/21 Rx furosemide 20 mg tablet 20 mg PO QAM 30 Days #30 tab 06/01/21 Rx lisinopril 20 mg tablet 20 mg PO QAM 30 Days #30 tab 06/01/21 Rx metformin 1,000 mg tablet 1,000 mg PO DAILY 30 Days #30 tab 06/01/21 Rx metformin 500 mg tablet,extended 500 mg PO PM 5 Days #5 tab 06/01/21 Rx release 24 hr metoprolol succinate 25 mg 25 mg PO QPM 30 Days #30 tab 06/01/21 Rx tablet,extended release 24 hr Patient History Social History Smoking Status: Former smoker Tobacco Type: Cigarettes Cigarettes Per Day: 10; Smoking End Date: September 2019; Hx Alcohol Use: Yes Alcohol type: beer Hx Substance Use: No Preferred Language: Hebrew Beliefs That Will Affect Care: None Current Living Situation: Alone Other Information That Helps Us Care for You: No Feels Safe at Home: Yes Safety Concerns: Feels Safe At This Time Assistive Devices: None Review of Systems Review of Systems: All systems reviewed & are unremarkable except as noted in HPI & below Remote history of viral symptoms such as fevers. Physical Exam Physical Exam: The patient is alert and oriented. Mood and affect appeared normal. He answered all questions appropriately. Obese HEENT: Pupils are equal and reactive to light and accommodation. Extraocular movements are intact. The sclerae are anicteric. Neuro: Cranial nerves intact Neck: Patient's neck is supple. He has palpable carotid pulses bilaterally without bruits on auscultation. There is no evidence of jugular venous distention. The thyroid is not enlarged. Lungs: Clear to auscultation bilaterally. He has good air movement without use of accessory muscles. No rales wheezes or rhonchi. Cardiac: Heart demonstrates a regular rate and rhythm. Normal S1 and S2. No murmurs on examination. Pulses: The patient has palpable radial pulses bilaterally that are equal in intensity Extremities: There was no evidence of hypoperfusion. There is no cyanosis or clubbing. There is no edema. Skin: I did not appreciate any rashes on examination today. Results & Data ([facility]) Vital Signs (Past 12 Hours) Vital Signs Temp Pulse Pulse Pulse Pulse Resp BP 06/01/21 16:21 36.6 C 81 20 L 82 23 06/01/21 15:28 36.6 C 82 23 06/01/21 11:37 36.5 C 83 18 06/01/21 09:37 69 06/01/21 07:05 36.4 C L 73 20 168/120 H 06/01/21 06:39 20 L 86 166/120 H BP Pulse Ox 06/01/21 16:21 158/110 H 95 06/01/21 15:28 158/110 H 95 06/01/21 11:37 153/120 H 93 06/01/21 09:37 06/01/21 07:05 91 06/01/21 06:39 Laboratory Results Abnormal Lab Results 05/31/21 06/01/21 06/01/21 20:13 05:52 05:52 WBC 8.18 RBC 4.77 Hgb 14.3 Hct 42.5 MCV 89.1 MCH 30.0 MCHC 33.6 RDW Std Deviation 49.7 H RDW Coeff of Mylene 15.5 H Plt Count 230 MPV 10.4 Immature Gran % (Auto) 0.1 Neut % (Auto) 65.7 Lymph % (Auto) 21.0 [place] % (Auto) 11.0 Eos % (Auto) 2.1 Baso % (Auto) 0.1 Neut # (Auto) 5.37 Lymph # (Auto) 1.72 [place] # (Auto) 0.90 H Eos # (Auto) 0.17 Baso # (Auto) 0.01 Immature Gran # (Auto) 0.01 Sodium 137 Potassium 3.8 Chloride 106 Carbon Dioxide 27 Anion Gap 4.0 BUN 15 Creatinine 0.88 Est Cr Clr Drug Dosing 199.2 Est GFR ( Amer) 128.1 Est GFR (Non-Af Amer) 110.5 BUN/Creatinine Ratio 17.7 Glucose 102 H POC Glucose 102 H Calcium 8.1 L Magnesium 2.3 Total Bilirubin 1.5 H AST 69 H ALT 130 H Alkaline Phosphatase 88 Troponin I 0.025 Total Protein 6.7 Albumin 3.1 L Globulin 3.6 Albumin/Globulin Ratio 0.9 06/01/21 06/01/21 06/01/21 07:03 11:12 16:28 WBC RBC Hgb Hct MCV MCH MCHC RDW Std Deviation RDW Coeff of Mylene Plt Count MPV Immature Gran % (Auto) Neut % (Auto) Lymph % (Auto) [place] % (Auto) Eos % (Auto) Baso % (Auto) Neut # (Auto) Lymph # (Auto) [place] # (Auto) Eos # (Auto) Baso # (Auto) Immature Gran # (Auto) Sodium Potassium Chloride Carbon Dioxide Anion Gap BUN Creatinine Est Cr Clr Drug Dosing Est GFR ( Amer) Est GFR (Non-Af Amer) BUN/Creatinine Ratio Glucose POC Glucose 108 H 120 H 100 H Calcium Magnesium Total Bilirubin AST ALT Alkaline Phosphatase Troponin I Total Protein Albumin Globulin Albumin/Globulin Ratio Diagnostic Findings echocardiogram performed on 05/31/2021 revealed severely reduced LV systolic function with ejection fraction of 35-40%. Moderate left ventricular dilation. Severe left atrial dilation. Pulmonary hypertension. PG Care Time/CCT Total # of Minutes Spent Total Time Spent with Patient: Total time spent is greater than 50% in coordination of care (as documented) at patient's floor/unit and/or counseling patient: Coding Level of Care Code 39298 Inpt Consult Level 4 Diagnoses Hypertension I10 Cardiomyopathy I42.9
--- NOTE | 2021-06-01 18:27 | Electrocardiogram Report ---
Test Reason : Blood Pressure : / mmHG Vent. Rate : 078 BPM Atrial Rate : 078 BPM P-R Int : 224 ms QRS Dur : 102 ms QT Int : 430 ms P-R-T Axes : 038 -40 083 degrees QTc Int : 490 ms Sinus rhythm with 1st degree A-V block Left axis deviation Minimal voltage criteria for LVH, may be normal variant Poor R wave progression, consider anterior [place] vs. lead placement vs. LVH Abnormal ECG When compared with ECG of 30-MAY-2021 19:39, AK interval has increased Confirmed by You Rea ([id number]) on 06/01/2021 6:26:47 PM Referred By: REFERRED SELF Confirmed By:Ole Rea
[2021-06-02] MEDS ORDERED: lisinopril 20 MG TAB PO SCH (09:00)
[2021-06-05 22:26] LABS: Metanephrine, Plasma 29 pg/mL (<=57); Normetanephrine Plasma 127 pg/mL (<=148); Total Metanephrine Plasma 156 pg/mL (<=205)
== END 2021-06-01 17:38 | disposition home or self-care (01) | DRG 304 ==
LOC: ED 19:14 → SUATTDRO 05-31 00:09 → 2S 05-31 00:09

== ENCOUNTER 2023-06-24 02:38 | Inpatient (IN) ==
--- NOTE | 2023-06-24 02:53 | Emergency Department Note ---
Impression & Plan Acute CHF (congestive heart failure), Hypertension, Elevated troponin ED Provider Note Name: ARISTEO GILLILAND Age: 37 Sex: M Arrives Via: Walk-In Informant: Patient ED Provider: Colt Monk MD Chief Complaint: Shortness of breath Impression: As per impressions above Medical Decision Makin-year-old gentleman with a previous history of cardiomyopathy, hypertension, diabetes with admission about 2 years ago for acute congestive heart failure. Arrives for evaluation of worsening fluid overload, shortness of breath and then an episode of chest pain this evening. EKG reassuring just mildly tachycardic. Chest x-ray with developing pulmonary edema, elevated BNP consistent with his acute congestive heart failure of which she admits almost 30 pound weight gain in the last few weeks. Has not been taking his medications due to insurance issues. Elevated troponin to congestive failure. He is not actively having any chest pain his EKG is similar to previous we will hold off on full anticoagulation at this time pending further testing however will give aspirin dose. Given history CHF is most likely issue and I do not feel that CT angiogram is indicated especially given heart rate has normalized, no hypoxia and he has other more likely cause than PE. Of note patient's blood pressure did improve with IV labetalol. He was furthermore given some IV Lasix. Prior Medical Record and Triage/Nursing Notes reviewed by Me External chart reviewed by me including previous hospitalization records and discharge summary Differentials:CHF, ACS, pneumonia, PE, effusions, electrolyte imbalance, anemia, many other pathologies considered Vital Signs: reviewed and remarkable for mild tachycardia on arrival improved. Significant hypertension Interventions: Labetalol 10 mg IV, Lasix 40 mg IV, aspirin 324 mg p.o. Labs:Reviewed and remarkable for elevated BNP, mildly elevated troponin Imagin view chest x-ray as per my interpretation reveals developing pulmonary edema/CHF which has increased since previous chest x-ray EKG:As per my interpretation. Indication chest pain. Sinus tachycardia 107 bpm without ectopy nor overt ischemia. There is a left bundle branch block. QTc of 496. When compared to EKG of June 01, 2021 there is no significant change other than rate has increased. Cardiac/Tele Monitoring: Cardiac Monitoring: An Order was placed for continuous cardiac monitoring. The monitor shows a rate of 90 with a normal sinus rhythm. Consults:Dr Pasquariello [place] Hospitalist Plan: Disposition:Hospitalization. Condition: Good History of Present Illness:37-year-old gentleman arrives for evaluation of shortness of breath. Patient notes about a week and a half of worsening shortness of breath. Associated with some dyspnea on exertion as well. Increasing swelling in his legs, his abdomen. Patient notes he had started taking his Lasix again the last few days without any improvement. He is still urinating. Denies any swelling in his groin. Denies any fevers, chills, syncope. This evening while he was lying flat in bed he noted the shortness of breath was worse and then he developed some substernal chest pain. Symptoms resolved with sitting up. Denies any current chest pain. Denies any nausea, vomiting, other concerning signs or symptoms. Notes he is supposed to be on multiple medications but did not have insurance recently and has been on them for some time. Past Medical History:Hypertension, dyslipidemia, type 2 diabetes, cardiomyopathy Home Medications:Prescribed multiple medications though has not been taking them until recently due to insurance issues Allergies:Shellfish Vitals:Blood Pressure: 180/120, Pulse 105, RR 22, T 36.5C, O2 96% on RA Physical Exam: GENERAL: Patient is tired appearing and in mild distress. RESPIRATORY: Mild tachypnea without much dyspnea. Some crackles at bases di stant lung sounds bilaterally. CARDIOVASCULAR: Mildly tachycardic.No murmurs, rubs, gallops appreciated. GASTROINTESTINAL: Distended abdomen with some pitting mottling over lower abdomen. No tenderness to palpation distant bowel sounds. Soft otherwise EXTREMITIES: Normal motion all extremities, no cyanosis, mild pitting bilaterally NEUROLOGIC: Alert and oriented, no focal neurologic deficits appreciated SKIN: No rash, no jaundice, no diaphoresis. PSYCH: Appropriate GCS: 15 ED Course: Times/Reassessments: Patient is comfortable denies any further chest pain and only feeling mildly short of breath. He is agreeable to hospitalization given work-up findings. Colt Monk MD Past Med/Surg History Medical History (Updated 06/24/23 @ 05:34 by Colt Monk MD) Hypertension Shortness of breath Social History Smoking Status: Former smoker Tobacco Type: Cigarettes Cigarettes Per Day: 10; Hx Alcohol Use: Yes Alcohol type: beer Hx Substance Use: No Preferred Language: Pakistani Beliefs That Will Affect Care: None Current Living Situation: Alone Feels Safe at Home: Yes Assistive Devices: None Allergies Allergies Allergy/AdvReac Type Severity Reaction Status Date / Time shellfish derived Allergy Severe Swelling Verified 05/30/21 21:38 of Lip/Tongue/Throat Home Meds Previous Rx's Medication Instructions Recorded amlodipine 5 mg tablet (Norvasc) 2.5 mg PO QAM 30 days #15 tabs 06/01/21 furosemide 20 mg tablet 20 mg PO QAM 30 days #30 tabs 06/01/21 lisinopril 20 mg tablet 20 mg PO QAM 30 days #30 tabs 06/01/21 metformin 1,000 mg tablet 1,000 mg PO DAILY 30 days #30 tabs 06/01/21 metoprolol succinate 25 mg 25 mg PO QPM 30 days #30 tabs 06/01/21 tablet,extended release 24 hr Results & Data (ED) Vital Signs Vital Signs - 24 hr 06/24/23 02:42 06/24/23 02:42 06/24/23 02:42 Temperature 36.5 C Temperature Source Oral Pulse Rate 100 H Pulse Rate from SpO2 Sensor Pulse Rhythm Regular Pulse Strength Normal Respiratory Rate 22 Respiratory Effort / Characteristics Non-Labored Non-Labored Spontaneous Respiratory Depth Normal Normal Respiratory Pattern Regular Regular Blood Pressure 183/138 H Blood Pressure Mean 153 Blood Pressure Position Sitting Pulse Oximetry 98 99 Oxygen Delivery Method Room Air Room Air Sepsis Recent Fever Within 48 Hours No Sepsis New/Unexplained Change in Mental Status N/A Sepsis Action Taken by Nursing No Action Required 06/24/23 02:52 06/24/23 02:58 06/24/23 03:25 Temperature Temperature Source Pulse Rate 100 H 97 H 81 Pulse Rate from SpO2 Sensor Pulse Rhythm Pulse Strength Respiratory Rate Respiratory Effort / Characteristics Respiratory Depth Respiratory Pattern Blood Pressure 183/138 H 143/111 H Blood Pressure Mean Blood Pressure Position Pulse Oximetry Oxygen Delivery Method Sepsis Recent Fever Within 48 Hours Sepsis New/Unexplained Change in Mental Status Sepsis Action Taken by Nursing 06/24/23 03:00 06/24/23 03:27 06/24/23 03:31 Temperature Temperature Source Pulse Rate 97 H 80 82 Pulse Rate from SpO2 Sensor 97 H 79 81 Pulse Rhythm Pulse Strength Respiratory Rate 29 H 22 14 Respiratory Effort / Characteristics Respiratory Depth Respiratory Pattern Blood Pressure 151/124 H 143/111 H 148/108 H Blood Pressure Mean 133 121 121 Blood Pressure Position Pulse Oximetry 96 95 96 Oxygen Delivery Method Room Air Room Air Room Air Sepsis Recent Fever Within 48 Hours Sepsis New/Unexplained Change in Mental Status Sepsis Action Taken by Nursing 06/24/23 04:01 06/24/23 04:31 Temperature Temperature Source Pulse Rate 80 81 Pulse Rate from SpO2 Sensor 80 82 Pulse Rhythm Pulse Strength Respiratory Rate 22 22 Respiratory Effort / Characteristics Respiratory Depth Respiratory Pattern Blood Pressure 155/101 H 157/110 H Blood Pressure Mean 119 125 Blood Pressure Position Pulse Oximetry 94 96 Oxygen Delivery Method Room Air Room Air Sepsis Recent Fever Within 48 Hours Sepsis New/Unexplained Change in Mental Status Sepsis Action Taken by Nursing Laboratory Data 06/24/23 02:50 06/24/23 02:50 Lab Results 06/24/23 06/24/23 06/24/23 Range/Units 02:50 02:50 02:50 WBC 10.12 (4.8-10.8) K/ul RBC 5.70 (4.70-6.10) M/uL Hgb 15.7 (14.0-18.0) g/dl Hct 48.5 (42.0-52.0) % MCV 85.1 (80.0-100.0) fL MCH 27.5 (25.0-34.0) pg MCHC 32.4 (32.0-36.0) g/dL RDW Std Deviation 50.9 H (36.4-46.3) fL RDW Coeff of Mylene 17.2 H (11.5-14.5) % Plt Count 236 (130-400) K/uL MPV 10.4 (9.4-12.4) fL Immature Gran % (Auto) 0.3 % Neut % (Auto) 70.4 % Lymph % (Auto) 18.8 % [place] % (Auto) 9.1 % Eos % (Auto) 0.9 % Baso % (Auto) 0.5 % Neut # (Auto) 7.13 H (1.40-6.50) K/uL Lymph # (Auto) 1.90 (1.20-3.40) K/uL [place] # (Auto) 0.92 H (0.11-0.59) K/uL Eos # (Auto) 0.09 (0.00-0.50) K/uL Baso # (Auto) 0.05 (0.00-0.20) K/uL Immature Gran # (Auto) 0.03 (0.01-0.20) K/uL Sodium 135 L (136-145) mmol/L Potassium 4.1 (3.5-5.1) mmol/L Chloride 105 (98-107) mmol/L Carbon Dioxide 21 (21-32) mmol/L Anion Gap 9 (3-11) BUN 18 (6-23) mg/dl Creatinine 0.97 (0.6-1.4) mg/dl Est Cr Clr Drug Dosing 170.9 ml/min Est GFR ( Amer) 114.3 ml/min Est GFR (Non-Af Amer) 98.6 ml/min BUN/Creatinine Ratio 18.6 (10-20) Glucose 163 H (70-99(Fasting)) mg/dl Calcium 8.5 L (8.6-10.3) mg/dl Magnesium 1.8 (1.7-2.4) mg/dl Total Bilirubin 1.5 H (0.2-1.0) mg/dl Direct Bilirubin 0.5 H (0-0.2) mg/dl AST 24 (13-39) U/L ALT 19 (7-52) U/L Alkaline Phosphatase 82 (34-104) U/L Troponin I High Sens 50.2 H* (0-20) pg/ml B-Natriuretic Peptide 1398 H (0-100) pg/ml Total Protein 7.3 (6.0-8.3) gm/dl Albumin 3.8 (3.4-5.0) gm/dl Urine Color Urine Appearance (Clear) Urine pH (4.5-7.5) Ur Specific [place] (1.000-1.030) Urine Protein (Negative) Urine Glucose (UA) (Negative) Urine Ketones (Negative) Urine Blood (Negative) Urine Nitrite (Negative) Urine Bilirubin (Negative) Urine Urobilinogen (Negative) Ur Leukocyte Esterase (Negative) Urine WBC (Auto) (0-5) /hpf Urine RBC (Auto) (0-4) /hpf U Hyaline Cast (Auto) (0-5) /lpf U Epithel Cells (Auto) (0-5) /lpf Urine Bacteria (Auto) (Negative) Ur Renal Epithelial Cell 06/24/23 Range/Units 03:39 WBC (4.8-10.8) K/ul RBC (4.70-6.10) M/uL Hgb (14.0-18.0) g/dl Hct (42.0-52.0) % MCV (80.0-100.0) fL MCH (25.0-34.0) pg MCHC (32.0-36.0) g/dL RDW Std Deviation (36.4-46.3) fL RDW Coeff of Mylene (11.5-14.5) % Plt Count (130-400) K/uL MPV (9.4-12.4) fL Immature Gran % (Auto) % Neut % (Auto) % Lymph % (Auto) % [place] % (Auto) % Eos % (Auto) % Baso % (Auto) % Neut # (Auto) (1.40-6.50) K/uL Lymph # (Auto) (1.20-3.40) K/uL [place] # (Auto) (0.11-0.59) K/uL Eos # (Auto) (0.00-0.50) K/uL Baso # (Auto) (0.00-0.20) K/uL Immature Gran # (Auto) (0.01-0.20) K/uL Sodium (136-145) mmol/L Potassium (3.5-5.1) mmol/L Chloride (98-107) mmol/L Carbon Dioxide (21-32) mmol/L Anion Gap (3-11) BUN (6-23) mg/dl Creatinine (0.6-1.4) mg/dl Est Cr Clr Drug Dosing ml/min Est GFR ( Amer) ml/min Est GFR (Non-Af Amer) ml/min BUN/Creatinine Ratio (10-20) Glucose (70-99(Fasting)) mg/dl Calcium (8.6-10.3) mg/dl Magnesium (1.7-2.4) mg/dl Total Bilirubin (0.2-1.0) mg/dl Direct Bilirubin (0-0.2) mg/dl AST (13-39) U/L ALT (7-52) U/L Alkaline Phosphatase (34-104) U/L Troponin I High Sens (0-20) pg/ml B-Natriuretic Peptide (0-100) pg/ml Total Protein (6.0-8.3) gm/dl Albumin (3.4-5.0) gm/dl Urine Color Dark Yellow Urine Appearance Cloudy A (Clear) Urine pH 5.5 (4.5-7.5) Ur Specific [place] 1.022 (1.000-1.030) Urine Protein 4+ H (Negative) Urine Glucose (UA) Negative (Negative) Urine Ketones Trace H (Negative) Urine Blood Trace H (Negative) Urine Nitrite Negative (Negative) Urine Bilirubin 1+ H (Negative) Urine Urobilinogen Negative (Negative) Ur Leukocyte Esterase Trace H (Negative) Urine WBC (Auto) 10-30 H (0-5) /hpf Urine RBC (Auto) 0-4 (0-4) /hpf U Hyaline Cast (Auto) >30 H (0-5) /lpf U Epithel Cells (Auto) >30 H (0-5) /lpf Urine Bacteria (Auto) 1+ H (Negative) Ur Renal Epithelial Cell Not Reportable Administered Medications Discontinued Medications Aspirin (Aspirin 81 Mg Chew) 324 mg PO NOW STA Stop: 06/24/23 04:00 Last Admin: 06/24/23 04:07 Dose: 324 mg Documented By: WANDA Furosemide (Furosemide 40 Mg/4 Ml Vial) 40 mg IV ONE ONE Stop: 06/24/23 03:50 Last Admin: 06/24/23 03:54 Dose: 40 mg Documented By: WANDA Labetalol HCl (Labetalol Hcl Iv 5 Mg/Ml 20ml) 10 mg IV NOW STA Stop: 06/24/23 02:55 Last Admin: 06/24/23 02:58 Dose: 10 mg Documented By: WANDA Co-signed By: SAMARIA Discharge Plan Visit Data Chief Complaint: Shortness of Breath/Dyspnea Stated Complaint: SOB, MILD CHEST PAIN, SWOLLEN EDEMA ED Provider: Colt Monk Discharge Problem: Acute CHF (congestive heart failure), Hypertension, Elevated troponin Forms Stand Alone Forms: [facility] [employer] Prescriptions Prescriptions: No Action lisinopril 20 mg Tablet 20 mg PO QAM 30 Days Qty: 30 1RF amlodipine [Norvasc] 5 mg Tablet 2.5 mg PO QAM 30 Days Qty: 15 1RF furosemide 20 mg Tablet 20 mg PO QAM 30 Days Qty: 30 1RF metoprolol succinate 25 mg Tablet Extended Release 24 Hr 25 mg PO QPM 30 Days Qty: 30 1RF metformin 1,000 mg tablet 1,000 mg PO DAILY 30 Days Qty: 30 1RF Rx Instructions: Begin taking 1000mg / day AFTER 500mg course is completed Referrals Referrals: PCP,NO [Primary Care Provider] -
[2023-06-24] MEDS ORDERED: LABETALOL HCL IV 5 MG/ML 20ML IV STA (02:54)
[2023-06-24 03:14] LABS: Basophils # (auto) 0.05 K/uL (0.00-0.20); Basophils % (auto) 0.5 %; Eosinophils # (auto) 0.09 K/uL (0.00-0.50); Eosinophils % (auto) 0.9 %; Hematocrit (blood only) 48.5 % (42.0-52.0); Hemoglobin 15.7 g/dl (14.0-18.0); Immature Granulocytes # (auto) 0.03 K/uL (0.01-0.20); Immature Granulocytes % (auto) 0.3 %; Lymphocytes % (auto) 18.8 %; Mean Corpuscular Hemoglobin 27.5 pg (25.0-34.0); Mean Corpuscular Hgb Conc 32.4 g/dL (32.0-36.0); Mean Corpuscular Volume 85.1 fL (80.0-100.0); Mean Platelet Volume 10.4 fL (9.4-12.4); Monocytes # (auto) 0.92 K/uL (0.11-0.59); Monocytes % (auto) 9.1 %; Neutrophils # (auto) 7.13 K/uL (1.40-6.50); Neutrophils % (auto) 70.4 %; Platelet Count 236 K/uL (130-400); RDW Coefficient of Variation 17.2 % (11.5-14.5); RDW Standard Deviation 50.9 fL (36.4-46.3); White Blood Count 10.12 K/ul (4.8-10.8)
[2023-06-24 03:29] LABS: Albumin Level 3.8 gm/dl (3.4-5.0); BUN Creatinine Ratio 18.6 (10-20); Bilirubin Direct 0.5 mg/dl (0-0.2); Bilirubin,Total 1.5 mg/dl (0.2-1.0); Calcium 8.5 mg/dl (8.6-10.3); Creatinine Clr Calc Pharmacy 170.9 ml/min; Est GFR (African American) 114.3 ml/min; Est GFR (Non-African American) 98.6 ml/min; Magnesium 1.8 mg/dl (1.7-2.4); Potassium 4.1 mmol/L (3.5-5.1); Total Protein 7.3 gm/dl (6.0-8.3)
[2023-06-24] MEDS ORDERED: FUROSEMIDE 40 MG/4 ML VIAL IV ONE (03:49)
[2023-06-24 03:53] LABS: Troponin I High Sensitivity 50.2 pg/ml (0-20)
[2023-06-24 03:58] LABS: Appearance Urine Cloudy (Clear); Blood Urine Trace (Negative); Color Urine Dark Yellow; Epithelial Cell Urine Auto >30 /lpf (0-5); Glucose Urine UA Negative (Negative); Ketones Urine Trace (Negative); Leukocyte Esterase Urine Trace (Negative); Nitrite Urine Negative (Negative); Protein Urine 4+ (Negative); RBC Urine Automated 0-4 /hpf (0-4); Specific Gravity Urine 1.022 (1.000-1.030); Urobilinogen Urine Negative (Negative); pH Urine 5.5 (4.5-7.5)
[2023-06-24] MEDS ORDERED: ASPIRIN 81 MG CHEW PO STA (03:59)
[2023-06-24 04:06] LABS: Bilirubin Urine 1+ (Negative)
[2023-06-24 04:43] LABS: Cast Urine Automated >30 /lpf (0-5)
[2023-06-24 04:44] LABS: Bacteria Urine Automated 1+ (Negative)
[2023-06-24] MEDS ORDERED: GLUCAGON FOR INJ 1 MG VIAL SQ PRN (05:19)
[2023-06-24] MEDS ORDERED: CARBOHYDRATES FOR HYPOGLYCEMIA PO PRN (05:19)
[2023-06-24] MEDS ORDERED: DEXTROSE 50% 50 ML SYRINGE IV PRN (05:19)
[2023-06-24] MEDS ORDERED: GLUCOSE 10 TAB/TUBE PO PRN (05:19)
[2023-06-24] MEDS ORDERED: GLUCOSE 40% GEL 15 GM TUBE PO PRN (05:19)
--- NOTE | 2023-06-24 05:33 | History & Physical Report ---
Date of Service June 24, 2023 Assessment & Plan (1) Acute HFrEF (heart failure with reduced ejection fraction): Plan: Patient is a 37-year-old male with a past medical history of HFrEF, hypertension, cardiomyopathy, steatohepatitis, and morbid obesity who presents to the hospital for evaluation for dyspnea and chest pain. Patient found to be in acute CHF exacerbation. He will be admitted for diuretics and cardiology consultation. -Admit to [facility] with telemetry, telemetry indication being CHF -Echocardiogram in the morning, previous EF of 35 to 40% indicating HFrEF -Patient on metoprolol, lisinopril, and Lasix in the outpatient setting -Given HFrEF history, consider quadruple therapy with ARNI, beta-blockade, SGLT2, and spironolactone -Cardiology consulted, appreciate recommendations. Patient would be a good candidate for heart failure clinic -40 mg IV Lasix given in ED, will give his typical 20 mg p.o. dose this morning as well -Patient is net +30 pounds in the past 2 months -Accurate I's and O's -Low-sodium diet -Patient does not have a primary care provider, patient would like to get set up with one (2) Elevated troponin: Plan: - Suspect due to demand ischemia from CHF exacerbation -Continue to trend (3) Hypertension: Plan: - Previously was on amlodipine and lisinopril, but has been out of medications for some time -We will defer to cardiology for now given he may receive additional medications (4) Proteinuria: Plan: -? Secondary to diabetes, ? CHF -Protein creatinine ratio ordered -If patient to be here long enough to consider gathering a 24-hour urine for total protein (5) Steatohepatitis: Plan: - Noted, secondary to morbid obesity - monitor with CMP (6) Diabetes: Plan: - DM2 secondary to morbid obesity, A1c ordered -Switch metformin to basal bolus insulin with sliding scale Plan Disposition: Admit to [facility] with telemetry, telemetry indication being acute CHF, cardiology consultation Diet: DM 2, low-sodium DVT prophylaxis: Heparin CODE STATUS: Full code History of Present Illness Chief Complaint: Dyspnea Primary Care Provider: NO PCP Patient is a 37-year-old male with a past medical history of HFrEF, hypertension, cardiomyopathy, steatohepatitis, and morbid obesity who presents to the hospital for evaluation for dyspnea and chest pain. Patient reports that he woke up at approximately 3:00 this morning and had that sensation of chest pain on his left parasternal border. It seems that the patient has had difficulty with insurance over the past couple months so he has had to make his medications last including his Lasix, metoprolol, and lisinopril. It seems that he has gained about 30 pounds in the past 2 months that he feels is mostly water weight. Because of his difficulty with getting his medications, he has been trying to watch his diet and limit the amount of sodium he consumes. He has had progressively worsening shortness of breath especially over the past few days to weeks and when he woke up with chest pain this morning, he felt he should come to the emergency room for evaluation. He has never had a heart attack or stroke as far as he is aware. Patient is an ex-smoker. He is also a diabetic, however, he does not have a primary care provider so his last A1c is from 2 years ago. He currently takes metformin daily. Denies any fevers, chills, nausea, or vomiting. Eating and drinking without difficulty. No change in bowel movements. He has noticed lower extremity edema as well as abdominal distention. By the time that I came and discussed with him, his chest pain had dissipated and his shortness of breath had improved. Otherwise not having any other complaints at this time. ED course: Patient evaluated by provider in room. Labs are significant for a glucose of 163, calcium of 8.5, total bilirubin of 1.5, direct bilirubin of 0.5, high-sensitivity troponin of 50.2 with a repeat pending, BNP of 1398, and a urinalysis positive for 4+ proteinuria. Patient was given 40 mg of IV Lasix and was beginning to diurese. He was also given aspirin and a 10 mg dose of labetalol for hypertension. Due to acute heart failure exacerbation, the hospitalist service was consulted for further management. Allergies Allergy/AdvReac Type Severity Reaction Status Date / Time shellfish derived Allergy Severe Swelling Verified 05/30/21 21:38 of Lip/Tongue/Throat Home Medications Medication Instructions Recorded Confirmed Type amlodipine 5 mg tablet (Norvasc) 2.5 mg PO QAM 30 days #15 tabs 06/01/21 Rx furosemide 20 mg tablet 20 mg PO QAM 30 days #30 tabs 06/01/21 Rx lisinopril 20 mg tablet 20 mg PO QAM 30 days #30 tabs 06/01/21 Rx metformin 1,000 mg tablet 1,000 mg PO DAILY 30 days #30 tabs 06/01/21 Rx metoprolol succinate 25 mg 25 mg PO QPM 30 days #30 tabs 06/01/21 Rx tablet,extended release 24 hr Past Med/Surg History Medical History (Updated 06/24/23 @ 05:50 by Fred Bull DO) Hypertension Shortness of breath Social History Smoking Status: Former smoker Tobacco Type: Cigarettes Cigarettes Per Day: 10; Hx Alcohol Use: Yes Alcohol type: beer Hx Substance Use: No Preferred Language: Macedonian Beliefs That Will Affect Care: None Current Living Situation: Alone Feels Safe at Home: Yes Assistive Devices: None Review of Systems Review of Systems: All systems reviewed & are unremarkable except as noted in HPI & below Physical Exam Constitutional: WD/WN, vitals as above + morbidly obese Eyes: + anicteric sclerae Neck: trachea midline, no thyromegaly Respiratory: normal respiratory effort and symmetric chest movement Auscultation: + diminished lung sounds and + crackles Cardiovascular: Rate/Rhythm: regular rate and regular rhythm Gastrointestinal (Abdomen): normal bowel sounds, soft, nontender, no hepatosplenomegaly Musculoskeletal: Head/Neck/Chest: normocephalic and head atraumatic Skin: no rashes, warm and dry Neurologic: moves all extremities Psychiatric: A+Ox3, euthymic affect Lymphatic: no cervical or axillary lymphadenopathy Results & Data Results & Data Vital Signs (Past 12 Hours) Vital Signs Temp Pulse Resp BP Pulse Ox O2 Del Method 06/24/23 04:31 81 22 157/110 H 96 Room Air 06/24/23 04:01 80 22 155/101 H 94 Room Air 06/24/23 03:31 82 14 148/108 H 96 Room Air 06/24/23 03:27 80 22 143/111 H 95 Room Air 06/24/23 03:00 97 H 29 H 151/124 H 96 Room Air 06/24/23 03:25 81 143/111 H 06/24/23 02:58 97 H 183/138 H 06/24/23 02:52 100 H 06/24/23 02:42 99 Room Air 06/24/23 02:42 36.5 C 100 H 22 183/138 H 98 Room Air Code Status & VTE Plan VTE Prophylaxis Plan VTE Prophylaxis will be ordered: Yes Supervising Physician Co-Signing Physician Notes Attending addendum: I have physically seen this patient, have supervised the medical residents activities, and agree with the H&P unless as otherwise noted. Assessment and Plan: Acute on chronic HFrEF- The patient will be admitted to telemetry for serial cardiac enzymes, serial EKG's, cardiac rhythm monitoring and a 2-D echocardiogram with Dopplers. Due to loss of insurance patient had been without his medications for few weeks. He reports he does have insurance now Reports that he gained 30 pounds over the past few weeks that he thinks is water weight Last echocardiogram on 05/31/2021 showed EF of 35-40% Troponin 50.2, BNP 1398 on admission Received from the ED labetalol 10 mg IV, furosemide 40 mg IV and aspirin 324 mg Start metoprolol succinate 25 mg p.o. now, then 25 mg p.o. twice daily Furosemide 40 mg IV every morning, and convert to oral dosing upon discharge Start spironolactone 25 mg p.o. every morning Lisinopril 10 mg p.o. every morning can be added back in after response to above Start aspirin 81 mg p.o. every morning tomorrow Cardiology to see Diabetes mellitus- Previously on metformin 1000 mg daily Placed on Accu-Cheks before meals and at bedtime with NovoLog coverage while in hospital May be best off with Jardiance on discharge (3) Hypertension Hypertension type: primary hypertension Qualified Code(s): I10 - Essential (primary) hypertension
[2023-06-24] MEDS ORDERED: METOPROLOL SUCC 25MG EXT REL TAB PO STA (06:25)
--- NOTE | 2023-06-24 06:32 | Billing Data ---
Date of Service June 24, 2023 Coding Level of Care Code 10615 INT INP/OBS CARE
[2023-06-24] MEDS ORDERED: ACETAMINOPHEN 325 MG TAB PO PRN (07:54)
--- NOTE | 2023-06-24 08:10 | XRay Report ---
XR chest 1V portable CLINICAL HISTORY: Chest pain and fluid overload TECHNIQUE: Single frontal radiograph of the chest was obtained. Comparison: Comparison is made to chest radiograph 05/30/2021 FINDINGS: Exam is limited by underpenetration. Cardiomegaly is noted. The lungs are clear. No evidence of pleur al effusion or pneumothorax. IMPRESSION: No acute chest disease. Cardiomegaly is noted. ACT 112: Negative or not required by law. Electronically signed by: Antonio Woodward M.D. 06/24/2023 8:07 AM
[2023-06-24] MEDS ORDERED: FUROSEMIDE 40 MG/4 ML VIAL IV SCH (09:00)
[2023-06-24] MEDS ORDERED: FUROSEMIDE 20 MG TAB PO SCH (09:00)
[2023-06-24] MEDS ORDERED: LANTUS PER UNIT CHARGE SQ SCH (09:00)
[2023-06-24] MEDS ORDERED: HEPARIN SOD 5,000 UNIT/0.5 ML VIAL SQ SCH (09:00)
[2023-06-24] MEDS ORDERED: SPIRONOLACTONE 25 MG TAB PO SCH (09:00)
--- NOTE | 2023-06-24 09:05 | XCELERA ---
[id number]
--- NOTE | 2023-06-24 09:54 | Cardiology Consultation ---
Date of Consultation June 24, 2023 Assessment & Plan (1) Acute HFrEF (heart failure with reduced ejection fraction): (2) Elevated troponin: (3) Cardiomyopathy: (4) Hypertension: Plan 1. Decompensated congestive heart failure: This symptoms are certainly consistent with an element of pulmonary edema. He did notice some increasing abdominal girth and lower extremity edema. No clear precipitating factor. No change in his diet. No documented arrhythmia. No evidence of a recent ischemic event. He seems to have responded well to diuresis. Will get an additional dose today. I think the symptoms have improved significantly we could potentially discharge him this afternoon on an aggressive regimen for his heart failure and close follow-up. 2. Cardiomyopathy: Unclear etiology. He has multiple risk factors for ischemic heart disease, but no overt symptoms. At his visit 2 years ago we had plans to obtain a ischemic evaluation but this never occurred. I describe several options for evaluation to include perfusion imaging, cardiac CT or angiography. Seems interested in more definitive evaluation and will arrange this as an outpatient. He needs to be on an aggressive regimen for heart failure. Will continue him on metoprolol succinate, we will add Entresto, he also appears to be a good candidate for an SGLT 2 inhibitor. I would defer spironolactone until we can see how his renal function and electrolytes respond to the initial regimen. 3. Chest pain: Noncardiac. Very fleeting in nature. No other symptoms suggestive of coronary ischemia or angina. 4. Elevated troponin: Very mild elevation. Most likely related to his chronic cardiomyopathy. I do not believe this is sales representative door to door of recent or acute coronary syndrome. 5. Hypertension: He has notable high blood pressure. Hopefully he will respond to more aggressive regimen which will include metoprolol and Entresto. Spironolactone will also be a good antihypertensive. I would suggest the following regimen at the time of discharge with close follow-up for electrolyte panel next week: Metoprolol succinate 50 mg daily. Entresto 24/26mb b.i.d. Furosemide 40 mg p.o. daily Jardiance or Farxiga 10 mg daily History of Present Illness Reason for Consultation: DYSPNEA, CHEST PAIN Requesting Physician: Ml Attending Physician: Canelo Gama MD History of Present Illness The patient is a 37-year-old gentleman with a known history of a cardiomyopathy who presented to the emergency room with symptoms of dyspnea and chest pain. Patient states that for the past week he has had some progressively worsening shortness of breath. This has resulted in an inability to sleep presumably due to orthopnea. He also had a very brief episode of fleeting chest discomfort that he described as sharp and cramping in the left upper chest. He stated this lasted only for few seconds and was not associated with exertion. He states that his current episode is very similar to that which he experienced over 2 years ago. He has noticed some increasing abdominal girth over similar period of time. Minimal lower extremity edema. He denies any specific change in his diet. However, he does use medications sparingly. Two years ago he was prescribed standard regimen for heart failure which included metoprolol, lisinopril and furosemide. He has essentially stopped taking the medications but does use of furosemide intermittently. Did start using furosemide a few days ago, but this was ineffectual an attenuating his symptoms. He denies other symptoms such as palpitations, dizziness, lightheadedness or syncope. No other episodes of chest pain. He does admit to being very sedentary. He has an she works from home and needs to stay in his house waiting for service calls. He is able ambulate without symptoms. He does not perform strenuous activity other than taking the garbage out approximately 2 blocks away. He did not report any exertional chest pain or shortness of breath traditionally with this activity. Allergies Allergy/AdvReac Type Severity Reaction Status Date / Time shellfish derived Allergy Severe Swelling Verified 05/30/21 21:38 of Lip/Tongue/Throat Home Medications Medication Instructions Recorded Confirmed Type No Known Home Medications 06/24/23 06/24/23 History Patient History Medical History (Updated 06/24/23 @ 05:50 by Fred Bull DO) Hypertension Shortness of breath Social History Smoking Status: Former smoker Tobacco Type: Cigarettes Cigarettes Per Day: 10; Hx Alcohol Use: Yes Alcohol type: beer Hx Substance Use: No Preferred Language: [place] Beliefs That Will Affect Care: None Current Living Situation: Alone Feels Safe at Home: Yes Assistive Devices: None Review of Systems Review of Systems: Per HPI Physical Exam Physical Exam: The patient is alert and oriented. Mood and affect appeared normal. He answered all questions appropriately. Obese HEENT: Pupils are equal and reactive to light and accommodation. Extraocular movements are intact. The sclerae are anicteric. Neuro: Cranial nerves intact Lungs: Clear to auscultation bilaterally. He has good air movement without use of accessory muscles. No rales wheezes or rhonchi. Cardiac: Heart demonstrates a regular rate and rhythm. Normal S1 and S2. No murmurs on examination. Pulses: The patient has palpable radial pulses bilaterally that are equal in intensity Extremities: There was no evidence of hypoperfusion. There is no cyanosis or clubbing. Mild lower extremity edema bilaterally Skin: I did not appreciate any rashes on examination today. Results & Data Vital Signs (Past 12 Hours) Vital Signs Temp Pulse Pulse Resp BP BP Pulse Ox 06/24/23 08:00 88 20 138/110 H 95 06/24/23 06:30 82 23 153/119 H 94 06/24/23 06:00 81 20 151/116 H 99 06/24/23 05:31 85 24 140/111 H 94 06/24/23 05:07 78 19 134/103 H 95 06/24/23 05:58 88 L 06/24/23 04:31 81 22 157/110 H 96 06/24/23 04:01 80 22 155/101 H 94 06/24/23 03:31 82 14 148/108 H 96 06/24/23 03:27 80 22 143/111 H 95 06/24/23 03:00 97 H 29 H 151/124 H 96 06/24/23 03:25 81 143/111 H 06/24/23 02:58 97 H 183/138 H 06/24/23 02:52 100 H 06/24/23 02:42 99 06/24/23 02:42 36.5 C 100 H 22 183/138 H 98 O2 Del Method O2 Flow Rate 06/24/23 08:00 Room Air 06/24/23 06:30 Room Air 06/24/23 06:00 Nasal Cannula 2 06/24/23 05:31 Room Air 06/24/23 05:07 Room Air 06/24/23 05:58 Room Air 06/24/23 04:31 Room Air 06/24/23 04:01 Room Air 06/24/23 03:31 Room Air 06/24/23 03:27 Room Air 06/24/23 03:00 Room Air 06/24/23 03:25 06/24/23 02:58 06/24/23 02:52 06/24/23 02:42 Room Air 06/24/23 02:42 Room Air Laboratory Results Abnormal Lab Results 06/24/23 06/24/23 06/24/23 02:50 02:50 02:50 WBC 10.12 RBC 5.70 Hgb 15.7 Hct 48.5 MCV 85.1 MCH 27.5 MCHC 32.4 RDW Std Deviation 50.9 H RDW Coeff of Mylene 17.2 H Plt Count 236 MPV 10.4 Immature Gran % (Auto) 0.3 Neut % (Auto) 70.4 Lymph % (Auto) 18.8 [place] % (Auto) 9.1 Eos % (Auto) 0.9 Baso % (Auto) 0.5 Neut # (Auto) 7.13 H Lymph # (Auto) 1.90 [place] # (Auto) 0.92 H Eos # (Auto) 0.09 Baso # (Auto) 0.05 Immature Gran # (Auto) 0.03 Sodium 135 L Potassium 4.1 Chloride 105 Carbon Dioxide 21 Anion Gap 9 BUN 18 Creatinine 0.97 Est Cr Clr Drug Dosing 170.9 Est GFR ( Amer) 114.3 Est GFR (Non-Af Amer) 98.6 BUN/Creatinine Ratio 18.6 Glucose 163 H POC Glucose Calcium 8.5 L Magnesium 1.8 Total Bilirubin 1.5 H Direct Bilirubin 0.5 H AST 24 ALT 19 Alkaline Phosphatase 82 Troponin I High Sens 50.2 H* B-Natriuretic Peptide 1398 H Total Protein 7.3 Albumin 3.8 Urine Color Urine Appearance Urine pH Ur Specific [place] Urine Protein Urine Glucose (UA) Urine Ketones Urine Blood Urine Nitrite Urine Bilirubin Urine Urobilinogen Ur Leukocyte Esterase Urine WBC (Auto) Urine RBC (Auto) U Hyaline Cast (Auto) U Epithel Cells (Auto) Urine Bacteria (Auto) Ur Renal Epithelial Cell 06/24/23 06/24/23 06/24/23 03:39 05:46 09:43 WBC RBC Hgb Hct MCV MCH MCHC RDW Std Deviation RDW Coeff of Mylene Plt Count MPV Immature Gran % (Auto) Neut % (Auto) Lymph % (Auto) [place] % (Auto) Eos % (Auto) Baso % (Auto) Neut # (Auto) Lymph # (Auto) [place] # (Auto) Eos # (Auto) Baso # (Auto) Immature Gran # (Auto) Sodium Potassium Chloride Carbon Dioxide Anion Gap BUN Creatinine Est Cr Clr Drug Dosing Est GFR ( Amer) Est GFR (Non-Af Amer) BUN/Creatinine Ratio Glucose POC Glucose 138 H Calcium Magnesium Total Bilirubin Direct Bilirubin AST ALT Alkaline Phosphatase Troponin I High Sens 44.2 H B-Natriuretic Peptide Total Protein Albumin Urine Color Dark Yellow Urine Appearance Cloudy A Urine pH 5.5 Ur Specific [place] 1.022 Urine Protein 4+ H Urine Glucose (UA) Negative Urine Ketones Trace H Urine Blood Trace H Urine Nitrite Negative Urine Bilirubin 1+ H Urine Urobilinogen Negative Ur Leukocyte Esterase Trace H Urine WBC (Auto) 10-30 H Urine RBC (Auto) 0-4 U Hyaline Cast (Auto) >30 H U Epithel Cells (Auto) >30 H Urine Bacteria (Auto) 1+ H Ur Renal Epithelial Cell Not Reportable Diagnostic Findings Echocardiogram performed today reveals severely reduced LV systolic function with global hypokinesis. Mild to moderate tricuspid regurgitation with elevated estimated pulmonary pressures. Acute cardiopulmonary findings. ECG Additional Comments: EKG demonstrated sinus rhythm with left atrial enlargement. 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 PG Care Time/CCT Total # of Minutes Spent Total Time Spent with Patient: Total time spent is greater than 50% in coordination of care (as documented) at patient's floor/unit and/or counseling patient: Coding Level of Care Code 82620 IN/OBS CONSULT LVL 4,60M Diagnoses Acute HFrEF (heart failure with reduced ejection fraction) I50.21 Elevated troponin R77.8 Cardiomyopathy I42.9 Hypertension I10 Hypertension type: primary hypertension (4) Hypertension Hypertension type: primary hypertension Qualified Code(s): I10 - Essential (primary) hypertension
[2023-06-24 10:36] LABS: Estimated Average Glucose 157 mg/dl; Hemoglobin A1C 7.1 % (4.5-5.6)
[2023-06-24] MEDS: INSULIN ASPART PER UNIT CHARGE SC SCH ×2 (10:45→12:49)
--- NOTE | 2023-06-24 12:13 | Discharge Summary ---
Date of Service June 24, 2023 Admission HPI Per Admitting Provider Patient is a 37-year-old male with a past medical history of HFrEF, hypertension, cardiomyopathy, steatohepatitis, and morbid obesity who presents to the hospital for evaluation for dyspnea and chest pain. Patient reports that he woke up at approximately 3:00 this morning and had that sensation of chest pain on his left parasternal border. It seems that the patient has had difficulty with insurance over the past couple months so he has had to make his medications last including his Lasix, metoprolol, and lisinopril. It seems that he has gained about 30 pounds in the past 2 months that he feels is mostly water weight. Because of his difficulty with getting his medications, he has been trying to watch his diet and limit the amount of sodium he consumes. He has had progressively worsening shortness of breath especially over the past few days to weeks and when he woke up with chest pain this morning, he felt he should come to the emergency room for evaluation. He has never had a heart attack or stroke as far as he is aware. Patient is an ex-smoker. He is also a diabetic, however, he does not have a primary care provider so his last A1c is from 2 years ago. He currently takes metformin daily. Denies any fevers, chills, nausea, or vomiting. Eating and drinking without difficulty. No change in bowel movements. He has noticed lower extremity edema as well as abdominal distention. By the time that I came and discussed with him, his chest pain had dissipated and his shortness of breath had improved. Otherwise not having any other complaints at this time. ED course: Patient evaluated by provider in room. Labs are significant for a glucose of 163, calcium of 8.5, total bilirubin of 1.5, direct bilirubin of 0.5, high-sensitivity troponin of 50.2 with a repeat pending, BNP of 1398, and a urinalysis positive for 4+ proteinuria. Patient was given 40 mg of IV Lasix and was beginning to diurese. He was also given aspirin and a 10 mg dose of labetalol for hypertension. Due to acute heart failure exacerbation, the hospitalist service was consulted for further management. Admission Exam Per Admitting Provider Constitutional: WD/WN, vitals as above + morbidly obese Eyes: + anicteric sclerae Neck: trachea midline, no thyromegaly Respiratory: normal respiratory effort and symmetric chest movement Auscultation: + diminished lung sounds and + crackles Cardiovascular: Rate/Rhythm: regular rate and regular rhythm Gastrointestinal (Abdomen): normal bowel sounds, soft, nontender, no hepatosplenomegaly Musculoskeletal: Head/Neck/Chest: normocephalic and head atraumatic Skin: no rashes, warm and dry Neurologic: moves all extremities Psychiatric: A+Ox3, euthymic affect Lymphatic: no cervical or axillary lymphadenopathy Principal Diagnosis acute HFrEF Discharge Exam Constitutional: well appearing, no acute distress HEENT: normocephalic, no conjunctival injection CV: regular rhythm, regular rate, no murmur, minimal bilateral LE edema Respiratory: Clear to auscultation bilaterally. No rhonchi, wheezes, or crackles. No increased work of breathing MSK: no gross deformities noted Skin: warm, dry, no rashes Neuro: alert, oriented, no FND noted Discharge Data Allergies Allergy/AdvReac Type Severity Reaction Status Date / Time shellfish derived Allergy Severe Swelling Verified 05/30/21 21:38 of Lip/Tongue/Throat Consultations 06/24/23 04:00 ED Decision to Admit Stat 06/24/23 07:54 Consult Cardiology Routine Hospital Course (1) Acute HFrEF (heart failure with reduced ejection fraction): Patient is a 37-year-old male with a past medical history of HFrEF, hypertension, cardiomyopathy, steatohepatitis, and morbid obesity who presents to the hospital for evaluation for dyspnea and chest pain. Patient found to be in acute CHF exacerbation. He was admitted for diuretics and cardiology consultation. - Cardiology consulted: recommended increase of furosemide from 20 mg daily to 40 mg, increase metoprolol from 25 mg to 50 mg daily, addition of Jardiance 10 mg daily, and addition of Entresto daily- would hold off on spironolactone at this point until repeat labs show how his kidney function and electrolytes handle the new medications (repeat labs in 1 week) - echocardiogram showed worsening of EF to 20-25% (previous EF of 35 to 40% in 2020) - recommend low sodium diet, daily weights at home - pt is set up with heart failure clinic; appt 07/01 at 10:30AM - pt also set up with PCP at [facility]; appt 07/02 at 7:45AM - pt will need close cardiology f/u to discern cause of cardiomyopathy/HFrEF (2) Elevated troponin: - EKG WNL - suspect due to demand ischemia from CHF exacerbation - downtrended prior to discharge (3) Hypertension: - previously on amlodipine and lisinopril- has been out of meds for awhile - discontinue lisinopril, replace with Entresto - pt will also be discharged on metoprolol for goal-directed therapy - will likely need further medications for appropriate BP control (4) Proteinuria: - ?Secondary to diabetes or HFrEF - recommend outpatient follow up/work up (5) Steatohepatitis: - secondary to morbid obesity - monitor outpatient with CMP (6) Diabetes: - DM2 secondary to morbid obesity, A1c 7.1% - continue home metformin upon discharge; will likely need adjustments of DM medications as f/u Plan Disposition: home with close PCP/cardiology f/u Diet: DM 2, low-sodium DVT prophylaxis: heparin Code: Full code Total Time Total Time Spent Total Time Spent (In Minutes): I spent 25 minutes seeing the patient, reviewing chart, discussing with delivery consultant, and dictating Discharge Plan Discharge Items Patient Disposition: Home - Self-Care Reason For Visit: SOB Discharge Diagnosis: HFrEF exacerbation Activity: Per Instructions section Non-emergency contact: Primary Care Provider Call non-emergency contact if: you have any medication questions and your symptoms worsen Follow-up/Referrals: Krista Christie PA-C [Physician Gum Scoring Machine Operator] - 07/01/23 10:30 am (Congestive Heart Failure Program Appointment Information Early follow up is essential to managing your heart failure. An appointment has been scheduled for you with the [facility] Heart [facility] within 7 days of discharge. Anticipate this visit to be 30-60 minutes long. Please expect a special education administrator phone call from one of our nurses approximately 48 hours from discharge. They will also be placing an order for lab work to be completed 1-2 days prior to your heart failure follow up appointment. Please be sure to have this done so we can go over the results when you come in. Office Location The cardiology office building is located in front of the hospital at [address] Bring the following with you to your follow-up doctor appointments: Please bring your daily weight log any discharge paperwork all of your medication bottles with you to this visit. ) Yaima Thompson, [Resident] - 07/02/23 7:45 am (hospital f/u/establish care) Diet: Carb Consistent or DM2 and Low Sodium (2gm) Ambulatory Orders: Basic Metabolic Panel (Routine) Timeframe: 1 Week Location: Determined by Patient Ordered By: Bianca Bullock Attending Provider Instructions: You were admitted to the hospital for an acute exacerbation of your heart failure. You were given diuretics to help reduce the fluid accumulation in your body. After receiving these, your symptoms subsided. An echocardiogram was completed which showed a decrease in your heart function since your last hospital visit about 2 years ago. It is very important that you follow up with cardiology and your new PCP. A discharge summary will be sent to your primary care physician to ensure continuity of care. Please bring this discharge summary with you to your next office appointment so that your provider can review it at that time. Medications: Your medication list has been reviewed and reconciled upon discharge to ensure accuracy and continuity of care. An updated list of all your medications is included with your hospital discharge paperwork. Please review this list closely and make note of any changes to your medications. - Your lasix was increased from 20 to 40 mg daily. - Your metoprolol should be increased from 25mg to 50mg. - A few medications were added: Jardiance 10 mg daily Entresto twice per day These medications are all to help with your heart failure and fluid status. Our records indicate that you were on lisinopril prior to this hospitalization. You should stop this as this medication is very similar to Entresto. Our records also show that you have been on metformin for your diabetes. You should continue taking this. Follow up appointments: - You have an appointment to establish care with a PCP 07/02/2023 at 7:45AM. - You also have an appointment with the cardiology heart failure clinic 07/01/2023 at 10:30AM. - You should get lab work done next week to recheck your kidney function and electrolytes. - Keep all of your follow up appointments as already scheduled. If you cannot make an appointment, notify your provider. CONTACT YOUR PRIMARY CARE PROVIDER if you experience any of the following: - Difficulty following your treatment plan - Difficulty taking any of your medications CALL 911 OR GO TO THE EMERGENCY DEPARTMENT if you experience any of the following: - Sudden, severe abdominal pain or nausea/vomiting - Severe chest pain or chest pain that radiates to your jaw or arm - Sudden, severe shortness of breath or difficulty breathing Pending Studies at Discharge: No Stand-Alone Forms: [facility], Smoking Cessation Medications and DC Order Prescriptions: New Entresto 24-26 mg tablet 1 tab PO BID Qty: 60 0RF metoprolol succinate [Toprol XL] 50 mg tablet extended release 24 hr 50 mg PO DAILY Qty: 30 0RF Jardiance 10 mg tablet 10 mg PO DAILY Qty: 30 0RF furosemide 40 mg tablet 40 mg PO DAILY Qty: 30 0RF Discharge Orders: Discharge Order (Routine); Ordered 06/24/23 Ordered By: Bianca Lima Admission Data Admit Date/Time: 06/24/23 05:19 Attending Provider: Deonte Hutchins Admit Provider: Fred Bull Primary Care Provider: PCP,NO Other Providers: Canelo Gama ; Jostin Maravilla ; Jerson Guzmán ; Shalom Antoine ; Kenneth Flores ; Vin Prince ; Dino Deras Jr ; Fred Cox ; Zoë Clark ; Waleska Aguero ; You Olmedo ; You Rea ; Rocky Maurice ; Krista Christie ; Celestina Auguste ; Antonio Dinh ; Jeb Richards ; Kenneth Shah V. ; Bart Dang Other Interventions: Discharge Summary Assessment (RN) Last Done: 06/24/23 12:31 Supervising Physician Co-Signing Physician Notes I also saw the patient and confirmed watkins portions of the clinical history and physical examination. I also discussed the case with the distributed energy systems consultant. I agree with the impression and plan as noted in the resident documentation above. This morning, the patient feels much better; specifically, decreased abdominal fullness. Denies any chest pain or dyspnea this morning. Patient had similar admission in 2020 but thereafter notes that he did not have medical insurance, so did not have any clinical follow-up. He does now have insurance and is committed to follow-up. Medication changes as noted above; reviewed with patient He has appropriate follow-up with CHF clinic and appointment to establish with PCP Return to emergency department with chest pain, dyspnea, or worsening symptoms. Resident Activity Tracking Resident Involvement: Resident Care Provided Care Provided: Adult [facility]
[2023-06-24 12:20] LABS: Creatinine Urine Random 168.6 mg/dl; Protein Creatinine Ratio Urine 4.9 (0-0.2); Total Protein Urine Random 826.9 mg/dl (0-11.9)
--- NOTE | 2023-06-24 14:46 | Electrocardiogram Report ---
Test Reason : Blood Pressure : / mmHG Vent. Rate : 107 BPM Atrial Rate : 107 BPM P-R Int : 182 ms QRS Dur : 112 ms QT Int : 372 ms P-R-T Axes : 051 265 072 degrees QTc Int : 496 ms Sinus tachycardia Possible Left atrial enlargement Minimal voltage criteria for LVH, may be normal variant Lateral infarct , age undetermined Poor R wave progression, consider anterior MA vs. lead placement vs. LVH Abnormal ECG When compared with ECG of 01-JUN-2021 04:31, WA interval has decreased Lateral infarct is now Present Confirmed by You Rea ([id number]) on 06/24/2023 2:46:24 PM Referred By: REFERRED SELF Confirmed By:Ole Rea
[2023-06-24] MEDS ORDERED: METOPROLOL SUCC 25MG EXT REL TAB PO SCH ×2 (21:00)
== END 2023-06-24 13:30 | disposition home or self-care (01) | DRG 291 ==
LOC: ED 02:38 → SUATTDRO 05:19 → OBSVTOIN 05:19 → EDINP 05:19 → INTOOBSV 05:19 → 2N 09:54